=== PATIENT | female | born 1940 | race Caucasian/White ===

== ENCOUNTER 2025-01-13 04:01 | Emergency (ER) | payer MEDICARE, OTHER, SELFPAY ==
[2025-01-13 04:04] VITALS: BP 188/84
[2025-01-13 04:23] VITALS: BP 151/130
[2025-01-13 04:24] VITALS: BP 164/57
[2025-01-13] MEDS: BENADRYL 25 MG IV (04:46)
[2025-01-13] MEDS: DECADRON 10 MG IV (04:47)
[2025-01-13] MEDS: PEPCID 20 MG IV (04:47)
[2025-01-13 04:52] LABS: Hematocrit 35.8 % (37.0-47.0); Hemoglobin 12.2 g/dL (12.0-16.0); Mean Corp Hgb Conc. 34.1 g/dL (33.0-37.0); Mean Corpuscular Volume 88.0 fL (81.0-99.0); Nucleated Red Blood Cells % 0 %; Platelet Count 276 10^3/uL (130-400); Red Cell Dist. Width 12.4 % (11.5-14.5)
[2025-01-13 04:59] LABS: INR 1.02; PT 13.7 Sec (11.4-14.6)
[2025-01-13 05:00] VITALS: BP 156/67
[2025-01-13 05:00] LABS: APTT 24.9 Sec (23.4-35.0)
[2025-01-13 05:03] LABS: ALT (SGPT) 16 U/L (0-35); AST (SGOT) 23 U/L (14-36); Albumin 4.6 g/dl (3.5-5.0); Alkaline Phosphatase 84 U/L (38-126); Blood Urea Nitrogen 41 mg/dl (7-17); Calcium 10.1 mg/dl (8.4-10.2); Carbon Dioxide 21 mmol/L (22-30); Chloride 108 mmol/L (98-107); Glucose 111 mg/dl (70-99); Potassium 4.7 mmol/L (3.5-5.1); Sodium 139 mmol/L (135-145); Total Protein 7.0 g/dl (6.3-8.2); eGFR 41.06
[2025-01-13 05:14] LABS: Troponin I < 0.012 ng/ml
--- NOTE | 2025-01-13 05:41 | ED.GENMED ---
Addendum entered and electronically signed by Elana Arellano PA-C 01/14/25 08:20:
Received a phone call from the patient regarding her steroid dose. She has been on long-term steroids for years for rheumatology problems, including rheumatoid arthritis and temporal arteritis. She has been down trended to 1 mg a day for quite a
while. Patient was seen here for lip swelling and was treated with 10 mg of IV Decadron and discharged with 4 days of 50 mg of prednisone. She just got the prescription, she did not take anything yet today after being seen on the yesterday.
She is wondering if she can do a smaller dose of steroids. I told her to do 50 mg today followed by 25 mg a day x 2, 10 mg once on day 4, 5 mg on day 5 and then back down to 1 mg a day. She was comfortable with this plan. Patient symptoms have
fully resolved
Original Note:
History of Present Illness
General
Chief Complaint: Allergic Reaction
Source: patient
Time Seen by Provider: 01/13/25 04:14
Nursing documentation reviewed up to this point in time: agreed with
History of Present Illness
History of Present Illness:
84-year-old female who presents with facial swelling after going out to dinner tonight. She did not eat or drink anything new. Denies new detergents. She states that she ate salmon, said that she eats 3 times a week. Denies difficulty swallowing
or breathing. Patient has no known food allergies.
Past History
Past History
ED Past Medical History: HTN, Hypercholesterolemia and Other (Migraines, temporal arteritis)
ED Past Surgical History: Orthopedic and Tonsilectomy
Social History
Tobacco: Non-smoker
Alcohol: None
Drug: None
Personal:
Living: with family
Employment: Retired
Family History
Family History: Other (Noncontributory)
Phy Exam
General Physical Exam
General Presentation: well appearing and no apparent distress
General Skin: warm and dry
General Habitus: normal
General Mental: alert
General Hydration: appears well hydrated
ENT Exam
ENT Exam: EOMI, pharynx normal, neck supple and normocephalic
Eye Exam
Eye Exam: PERRL, cornea clear and conjunctiva normal
Cardiovascular Exam
Cardiovascular Exam: regular rate/rhythm, no edema, no murmur and normal peripheral pulses
Pulmonary Exam
Pulmonary Exam: lungs clear, no respiratory distress, no rales, no crackles, no rhonchi, no stridor, no wheezing and no cough
Gastrointestinal Exam
Gastrointestinal Exam: normal bowel sounds, non tender, soft, no organomegaly, no pulsatile mass and non distended
Neurological Exam
Neurological Exam: alert, oriented x3, no motor deficits and speech normal
Musculoskeletal Exam
Musculoskeletal Exam: full ROM and no edema
Skin Exam
Skin Exam: normal color, warm/dry, no rash and no petechia
Psychiatric Exam
Psychiatric Exam: normal mood/affect
Course
Orders/Labs/Results
Orders:
Orders
01/13/25 04:25
Complete Blood Count/With Diff Urgent
Comprehensive Metabolic Panel Urgent
PTT Urgent
Prothrombin Time Urgent
Troponin I Urgent
01/13/25 04:42
Dexamethasone Sod Phosphate [Decadron] 10 mg IV NOW STA
Diphenhydramine [Benadryl] 25 mg IV NOW STA
Famotidine [Pepcid] 20 mg IV NOW STA
01/13/25 04:59
EKG [Electrocardiogram (*1)] Urgent
Reason for Study: Chest Pain
EKG- Treatment ONCE
01/13/25 05:15
EKG- Treatment ONCE
01/13/25 05:37
0.9% Sodium Chloride 1000 ml [Nss] 1,000 ml IV BOLUS
Abnormal Lab Results
01/13/25
04:25
RBC 4.07 L 10^6/uL
(4.20-5.40)
Hct 35.8 L %
(37.0-47.0)
Absolute Neuts (auto) 7.1 H 10^3/uL
(1.4-6.5)
Absolute Lymphs (auto) 1.0 L 10^3/uL
(1.2-3.4)
Absolute Monos (auto) 0.8 H 10^3/uL
(0.1-0.6)
Neutrophils % 76.9 H %
(42.2-75.2)
Lymphocytes % 10.8 L %
(20.5-51.1)
Chloride 108 H mmol/L
(98-107)
Carbon Dioxide 21 L mmol/L
(22-30)
BUN 41 H mg/dl
(7-17)
Creatinine 1.3 H mg/dL
(0.6-1.0)
Glucose 111 H mg/dl
(70-99)
01/13/25 04:25
01/13/25 04:25
Vital Signs
Initial and Last Documented VS:
Initial Vital Signs
Temp Pulse Resp BP Pulse Ox
98.1 F 66 26 188/84 98
01/13/25 04:04 01/13/25 04:04 01/13/25 04:04 01/13/25 04:04 01/13/25 04:04
Last Documented Vital Signs
Temp Pulse Resp BP Pulse Ox
98.1 F 58 17 156/67 97
01/13/25 04:04 01/13/25 05:30 01/13/25 05:30 01/13/25 05:00 01/13/25 05:42
*Pulse Oximetry
SaO2: 97
Oxygen Mode of Delivery: Room air
Patient hypoxic: no
*Critical Care Note
Total Time (30-74mins, 75-104mins- exclusive of procedures): Not Applicable
Update Note
Update Note:
Patient with acute allergic reaction without anaphylaxis. Will be discharged home with EpiPen. We did discuss how to use it.
ED Attending Note
-
Portions of this chart may have been created with voice recognition software.� Occasional wrong word or��sound alike� substitutions may have occurred due to the inherent limitations of voice recognition software.
Discharge Plan
Departure
Patient Disposition: Home (Routine Discharge)
Date of Disposition: 01/13/25
Time of Disposition: 06:01
Patient with high blood pressure during this ER visit?: Yes
Condition: Good
Discharge Problem:
Allergic reaction
Instructions: Allergic reaction - ED (DC), BLOOD PRESSURE
Prescriptions:
New
diphenhydramine HCl [Benadryl] 25 mg capsule
25 mg PO TID PRN (Reason: allergy symptoms) Qty: 14 0RF
prednisone 50 mg Tablet
50 mg PO DAILY Qty: 4 0RF
epinephrine [EpiPen] 0.3 mg/0.3 mL Auto-Injector
0.3 mg IM .STAT PRN (Reason: anaphylaxis) Qty: 1 0RF
No Action
nifedipine 30 MG tablet extended release 24hr
30 mg PO BID
atorvastatin 10 MG tablet
20 mg PO QPM
aspirin [Aspir-Low] 81 MG tablet,delayed release (DR/EC)
81 mg PO DAILY
propranolol 20 MG tablet
20 mg PO BID
lisinopril 40 MG tablet
40 mg PO DAILY
diphenhydramine HCl [Sleep Aid (diphenhydramine)] 25 MG capsule
25 mg PO HS
esomeprazole magnesium 40 MG capsule,delayed release(DR/EC)
40 mg PO DAILY
cholecalciferol (vitamin D3) [Vitamin D3] 1,000 UNIT capsule
1,000 unit PO DAILY
meclizine 25 MG tablet
25 mg PO Q8HPRN PRN (Reason: Dizziness) Qty: 18 0RF
prednisone 1 mg Tablet
1 mg PO DAILY
hydroxychloroquine 100 mg Tablet
100 mg PO DAILY
Patient Comments:
WITH FOOD
Referrals:
Srinivas Russell DO [Active, Nephrology] - Next open appointment
Rene Calderón MD [Family Provider, Internal Medicine]
Activity Restrictions/Additional Instructions:
Your prescriptions were sent electronically to the pharmacy that you specified.
Thank You for choosing [facility].
It was a pleasure meeting you and taking part in your care. We hope for your continued healing and wellness.
Please read discharge instructions in their entirety. However, they are for general education and may not describe your exact diagnosis at discharge. Information on your ER visit and medical conditions were discussed with you along with appropriate
follow up information...
If indicated, please take your medications as instructed and indicated on discharge paperwork.
Please schedule a follow up appointment as directed. Call to schedule an appointment
Please return to the emergency department with ANY change in, persisting, or worsening of symptoms. If any of your symptoms do not improve, or persist, or become more severe within 6-12 hours, please return to the emergency department for further
care.
Please return to the emergency department if you develop a headache, neck pain/stiffness, fever greater than 100.4F, chest pain, shortness of breath, persistent nausea, vomiting, slurred speech, difficulty walking, numbness/tingling, weakness, signs
of infection or any other symptoms that are worrisome to you.
If you have any questions or concerns please do not hesitate to call the Hospital at or E-mail me directly at [email or web address]
Interventions
Interventions:
*Risk Screen - Suicide Last Done: 01/13/25 04:04
*General Assessment Last Done: 01/13/25 04:35
*Neglect/Abuse Screening Last Done: 01/13/25 04:04
*ED- Fall Risk Assessment Last Done: 01/13/25 04:35
*ED COVID-19 Vaccine History Last Done: 01/13/25 04:35
*Nursing Disposition Last Done: 01/13/25 06:55
EK-Csgvcl-Qfsislnece Assessment Last Done: 01/13/25 04:35
ED- Cardiac Assessment Last Done: 01/13/25 04:35
ED- Pulmonary Assessment Last Done: 01/13/25 04:35
ED-Skin Assessment Last Done: 01/13/25 04:35
Discharge Date and Time
Discharge Date/Time: 01/13/25 06:55
Print Language: GEORGIAN
[2025-01-13] MEDS: NSS 1000 IV (05:59)
== END 2025-01-13 06:55 | disposition home or self-care (01) ==
LOC: EMR 04:01
PROVIDERS: EMERGENCY PHYSICIAN Student in an Organized Health Care Education/Training Program; FAMILY PHYSICIAN Internal Medicine
DX: T78.40XA Allergy, unspecified, initial encounter (principal); Y92.9 Unspecified place or not applicable; I10 Essential (primary) hypertension; E78.00 Pure hypercholesterolemia, unspecified
CPT/HCPCS: 99283; 96374; 96375; 96361; 80053; 84484; 85025; 85610; 85730; 93005

== ENCOUNTER 2025-03-06 22:29 | Observation (INO) | payer MEDICARE, OTHER, SELFPAY ==
[2025-03-06 16:01] VITALS: BP 152/64
[2025-03-06 16:29] LABS: Hematocrit 41.3 % (37.0-47.0); Hemoglobin 13.6 g/dL (12.0-16.0); Mean Corp Hgb Conc. 32.9 g/dL (33.0-37.0); Mean Corpuscular Volume 92.2 fL (81.0-99.0); Nucleated Red Blood Cells % 0 %; Platelet Count 385 10^3/uL (130-400); Red Cell Dist. Width 12.9 % (11.5-14.5)
[2025-03-06 16:40] LABS: ALT (SGPT) 20 U/L (0-35); AST (SGOT) 30 U/L (14-36); Albumin 5.1 g/dl (3.5-5.0); Alkaline Phosphatase 66 U/L (38-126); Blood Urea Nitrogen 28 mg/dl (7-17); Calcium 11.1 mg/dl (8.4-10.2); Carbon Dioxide 29 mmol/L (22-30); Chloride 103 mmol/L (98-107); Glucose 113 mg/dl (70-99); Lipase 113 U/L (23-300); Potassium 4.7 mmol/L (3.5-5.1); Sodium 139 mmol/L (135-145); Total Protein 7.9 g/dl (6.3-8.2); eGFR 56.25
--- NOTE | 2025-03-06 18:53 | ED.GENMED ---
History of Present Illness
<Elana Arellano PA-C - Last Filed: 03/09/25 08:59>
General
Chief Complaint: Abdominal Symptoms
Time Seen by Provider: 03/06/25 18:12
History of Present Illness
History of Present Illness:
see MDM
Past History
<Elana Arellano PA-C - Last Filed: 03/09/25 08:59>
Past History
ED Past Medical History: HTN, Hypercholesterolemia and Other (Migraines, temporal arteritis)
ED Past Surgical History: Orthopedic and Tonsilectomy
Social History
Tobacco: Non-smoker
Alcohol: None
Drug: None
Personal:
Living: with family
Employment: Retired
Family History
Family History: Other (Noncontributory)
Phy Exam
<Elana Arellano PA-C - Last Filed: 03/09/25 08:59>
Physical Exam
Physical Exam:
seeMDM
Course
<Elana Arellano PA-C - Last Filed: 03/09/25 08:59>
Orders/Labs/Results
Orders:
Orders
03/06/25 16:09
Complete Blood Count/With Diff Urgent
Comprehensive Metabolic Panel Urgent
Lipase Urgent
03/06/25 18:48
CT Abd/Pel (IV only)-DH only Urgent
Comment:
Reason For Exam: vomiting, fever, epidural yesterday
Acetaminophen 1000MG/100Ml [Ofirmev] 1,000 mg in 100 ml IV ONCE
Acetaminophen IV Indication:: No SD & No Enteral Access
Ondansetron Injectable [Zofran] 4 mg IV NOW STA
03/06/25 19:05
COVID-19 Antigen Urgent
Source: Nasal Swab
Urinalysis Reflex To Culture Urgent
Date Specimen was Collected: 03/06/25
Time Specimen was Collected: 18:55
Urine Microscopic Reflex Cult Urgent
Influenza A+B Rapid Molecular Urgent
FACUNDO Source: Nasal Swab
Specimen Description:
Urine Culture Urgent
FACUNDO Source: U
Specimen Description:
Date Specimen was Collected: 03/06/25
Time Specimen was Collected: 18:55
03/06/25 19:25
0.9% Sodium Chloride 1000 ml [Nss] 1,000 ml IV BOLUS
03/06/25 21:17
Lactic Acid Urgent
Blood Culture Q30M
FACUNDO Source: Blood/Venous
Specimen Description:
Blood Culture Q30M
FACUNDO Source: Blood/Venous
Specimen Description:
03/06/25 21:21
0.9% Sodium Chloride 1000 ml [Nss] 1,000 ml IV BOLUS
03/06/25 22:04
CT Head W/o Iv Contrast Stat
Comment:
Reason For Exam: headache
03/06/25 22:22
Admit/Transfer Patient As Directed
Co-Sign Provider:
Level of Care: Observation services
Assign to:: Medical/Surgical
Physician / Group: kailey nguyen
Diagnosis: n/v
PRN Pain Medication Management As Directed
May give lesser potent ordered pain med per pt: Yes
preference::
Protocol:: Medication orders for pain may be administered in a
manner that supports deferring to patient preference
when the pt is:
- Requesting an ordered lesser potent pain medication.
Least to most potent pain medications are defined
as: acetaminophen < NSAID < tramadol < opioids
(morphine, oxycodone, hydromorphone).
- Requesting a lesser dose of the same medication IF
ORDERED.
- Requesting a less intrusive route of administration
if both routes are prescribed by the provider (PO <
IV).
10/11/25 22:23
Code Status As Directed
Resuscitation Status: Full Code
03/06/25 22:25
EKG [Electrocardiogram (*1)] Stat
Reason for Study: QTc Monitoring
03/07/25 00:07
0.9% Sodium Chloride 1000 ml [Nss] 1,000 ml IV 80 mls/hr
Acetaminophen [Tylenol] 650 mg PO Q4HPRN PRN
Bisacodyl [Dulcolax] 10 mg RECTAL [id number] PRN
Docusate W/Senna [Senokot-S] 1 tablet PO BIDPRN PRN
Ondansetron Injectable [Zofran] 4 mg IV Q6HPRN PRN
Polyethylene Glycol Powder [Miralax] 17 grams PO DAILYPRN PRN
03/07/25 00:07
Activity As Directed
Activity Level: As Tolerated
Pneumatic Compression Sleeves As Directed
Type: Knee high
Vital Signs As Directed
Frequency: Per unit guidelines
DX Deep Vein Thrombosis Video Routine
03/07/25 Breakfast
Regular
At Your Request: Full Participation
Does patient need a safe tray?: No
03/07/25 06:38
Basic Metabolic Panel IN AM
Complete Blood Count/No Diff IN AM
03/07/25 08:00
Aspirin Low Dose EC [Aspir Low (Enteric Coated)] 81 mg PO DAILY
Hydroxychloroquine [Plaquenil] 200 mg PO DAILY
Lisinopril [Zestril] 40 mg PO DAILY
NIFEdipine EXTENDED RELEASE [Procardia Xl (Extended Release)] 30 mg PO BID
Pantoprazole [Protonix] 40 mg PO DAILY
Prednisone [Deltasone] 1 mg PO DAILY
Propranolol [Inderal] 20 mg PO BID
03/07/25 18:00
Atorvastatin [Lipitor] 40 mg PO QPM
Abnormal Lab Results
03/06/25 03/06/25
16:09 19:05
WBC 11.8 H 10^3/uL
(4.8-10.8)
MCHC 32.9 L g/dL
(33.0-37.0)
Absolute Neuts (auto) 9.7 H 10^3/uL
(1.4-6.5)
Absolute Lymphs (auto) 1.1 L 10^3/uL
(1.2-3.4)
Absolute Monos (auto) 1.0 H 10^3/uL
(0.1-0.6)
Neutrophils % 81.9 H %
(42.2-75.2)
Lymphocytes % 9.0 L %
(20.5-51.1)
BUN 28 H mg/dl
(7-17)
Glucose 113 H mg/dl
(70-99)
Calcium 11.1 H mg/dl
(8.4-10.2)
Albumin 5.1 H g/dl
(3.5-5.0)
Ur Occult Blood Reflex 2+ A
(Negative)
Leukocyte Esterase Rfl 1+ A
(Negative)
Urine Bacteria (Reflex) Few A
(Negative)
Urine Albumin (Reflex) 1+ A
(Neg - Trace)
03/06/25 16:09
03/06/25 16:09
Vital Signs
Temp: 37.5 C
Initial and Last Documented VS:
Initial Vital Signs
Temp Pulse Resp BP Pulse Ox
37.1 C 67 18 152/64 97
03/06/25 16:01 03/06/25 16:01 03/06/25 16:01 03/06/25 16:01 03/06/25 16:01
Last Documented Vital Signs
Temp Pulse Resp BP Pulse Ox
36.4 C 61 18 132/61 97
03/07/25 14:30 03/07/25 14:30 03/07/25 14:30 03/07/25 14:30 03/07/25 14:30
<Dariela Gutierrez MD - Last Filed: 03/06/25 22:09>
Orders/Labs/Results
Orders:
Orders
03/06/25 16:09
Complete Blood Count/With Diff Urgent
Comprehensive Metabolic Panel Urgent
Lipase Urgent
03/06/25 18:48
CT Abd/Pel (IV only)-DH only Urgent
Comment:
Reason For Exam: vomiting, fever, epidural yesterday
Acetaminophen 1000MG/100Ml [Ofirmev] 1,000 mg in 100 ml IV ONCE
Acetaminophen IV Indication:: No SD & No Enteral Access
Ondansetron Injectable [Zofran] 4 mg IV NOW STA
03/06/25 19:05
COVID-19 Antigen Urgent
Source: Nasal Swab
Urinalysis Reflex To Culture Urgent
Date Specimen was Collected: 03/06/25
Time Specimen was Collected: 18:55
Urine Microscopic Reflex Cult Urgent
Influenza A+B Rapid Molecular Urgent
FACUNDO Source: Nasal Swab
Specimen Description:
Urine Culture Urgent
FACUNDO Source: U
Specimen Description:
Date Specimen was Collected: 03/06/25
Time Specimen was Collected: 18:55
03/06/25 19:25
0.9% Sodium Chloride 1000 ml [Nss] 1,000 ml IV BOLUS
03/06/25 21:17
Lactic Acid Urgent
Blood Culture Q30M
FACUNDO Source: Blood/Venous
Specimen Description:
Blood Culture Q30M
FACUNDO Source: Blood/Venous
Specimen Description:
03/06/25 21:21
0.9% Sodium Chloride 1000 ml [Nss] 1,000 ml IV BOLUS
03/06/25 22:04
CT Head W/o Iv Contrast Stat
Comment:
Reason For Exam: headache
03/06/25 22:22
Admit/Transfer Patient As Directed
Co-Sign Provider:
Level of Care: Observation services
Assign to:: Medical/Surgical
Physician / Group: kailey nguyen
Diagnosis: n/v
PRN Pain Medication Management As Directed
May give lesser potent ordered pain med per pt: Yes
preference::
Protocol:: Medication orders for pain may be administered in a
manner that supports deferring to patient preference
when the pt is:
- Requesting an ordered lesser potent pain medication.
Least to most potent pain medications are defined
as: acetaminophen < NSAID < tramadol < opioids
(morphine, oxycodone, hydromorphone).
- Requesting a lesser dose of the same medication IF
ORDERED.
- Requesting a less intrusive route of administration
if both routes are prescribed by the provider (PO <
IV).
03/06/25 22:23
Code Status As Directed
Resuscitation Status: Full Code
03/06/25 22:25
EKG [Electrocardiogram (*1)] Stat
Reason for Study: QTc Monitoring
03/07/25 00:07
0.9% Sodium Chloride 1000 ml [Nss] 1,000 ml IV 80 mls/hr
Acetaminophen [Tylenol] 650 mg PO Q4HPRN PRN
Bisacodyl [Dulcolax] 10 mg RECTAL [id number] PRN
Docusate W/Senna [Senokot-S] 1 tablet PO BIDPRN PRN
Ondansetron Injectable [Zofran] 4 mg IV Q6HPRN PRN
Polyethylene Glycol Powder [Miralax] 17 grams PO DAILYPRN PRN
03/07/25 00:07
Activity As Directed
Activity Level: As Tolerated
Pneumatic Compression Sleeves As Directed
Type: Knee high
Vital Signs As Directed
Frequency: Per unit guidelines
DX Deep Vein Thrombosis Video Routine
03/07/25 Breakfast
Regular
At Your Request: Full Participation
Does patient need a safe tray?: No
03/07/25 06:38
Basic Metabolic Panel IN AM
Complete Blood Count/No Diff IN AM
03/07/25 08:00
Aspirin Low Dose EC [Aspir Low (Enteric Coated)] 81 mg PO DAILY
Hydroxychloroquine [Plaquenil] 200 mg PO DAILY
Lisinopril [Zestril] 40 mg PO DAILY
NIFEdipine EXTENDED RELEASE [Procardia Xl (Extended Release)] 30 mg PO BID
Pantoprazole [Protonix] 40 mg PO DAILY
Prednisone [Deltasone] 1 mg PO DAILY
Propranolol [Inderal] 20 mg PO BID
03/07/25 18:00
Atorvastatin [Lipitor] 40 mg PO QPM
Abnormal Lab Results
03/06/25 03/06/25
16:09 19:05
WBC 11.8 H 10^3/uL
(4.8-10.8)
MCHC 32.9 L g/dL
(33.0-37.0)
Absolute Neuts (auto) 9.7 H 10^3/uL
(1.4-6.5)
Absolute Lymphs (auto) 1.1 L 10^3/uL
(1.2-3.4)
Absolute Monos (auto) 1.0 H 10^3/uL
(0.1-0.6)
Neutrophils % 81.9 H %
(42.2-75.2)
Lymphocytes % 9.0 L %
(20.5-51.1)
BUN 28 H mg/dl
(7-17)
Glucose 113 H mg/dl
(70-99)
Calcium 11.1 H mg/dl
(8.4-10.2)
Albumin 5.1 H g/dl
(3.5-5.0)
Ur Occult Blood Reflex 2+ A
(Negative)
Leukocyte Esterase Rfl 1+ A
(Negative)
Urine Bacteria (Reflex) Few A
(Negative)
Urine Albumin (Reflex) 1+ A
(Neg - Trace)
03/06/25 16:09
03/06/25 16:09
Vital Signs
Initial and Last Documented VS:
Initial Vital Signs
Temp Pulse Resp BP Pulse Ox
37.1 C 67 18 152/64 97
03/06/25 16:01 03/06/25 16:01 03/06/25 16:01 03/06/25 16:01 03/06/25 16:01
Last Documented Vital Signs
Temp Pulse Resp BP Pulse Ox
36.4 C 61 18 132/61 97
03/07/25 14:30 03/07/25 14:30 03/07/25 14:30 03/07/25 14:30 03/07/25 14:30
<Elana Arellano PA-C - Last Filed: 03/09/25 08:59>
MDM/Problems Addressed
Differential Diagnosis Includes:
see MDM
MDM/Problems Addressed:
Note:
CHIEF COMPLAINT(S)
Nausea, vomiting, headache, dehydration.
HISTORY OF PRESENT ILLNESS
The patient is an 84-year-old female who presented with nausea and vomiting following an epidural procedure performed yesterday morning for back and leg pain. She reports having two episodes of vomiting with liquid contents approximately one and a
half hours after returning home from the procedure. Despite contacting the pain management doctor who administered the epidural, who was not affiliated with the hospital, the symptoms were attributed to a potential gastrointestinal issue rather than
the epidural itself.
The patient noted an inability to sleep well, citing nausea and mild headache, denied neck stiffness. She reported experiencing feeling flushed but wasn't aware of fever
She also noted very mild bowel movements but no diarrhea or abdominal pain. Her last bowel movement was described as very mild.
The patient denies fever and has not recorded any elevated temperature, although her observed facial redness. She reported a mild headache today, with no notable photophobia unless keeping eyes closed implies it. There were no accompanying
symptoms like diarrhea or significant abdominal discomfort, except for a feeling of fullness.
PAST MEDICAL AND SURGICAL HISTORY
The patient underwent two epidural injections for back and leg pain. She had a past medical history of stenosis intervention by her doctor, adjusting the medication dosages.
SOCIAL DETERMINANTS AFFECTING HEALTH
There was an indirect mention of potential stress related to caregiving responsibilities as noted when the patient mentioned being with her and daughter.
PHYSICAL EXAM
- Nursing notes reviewed and vital signs reviewed.
GENERAL: Alert , in no apparent distress
EYE: pupils equal and reactive
NECK: Supple
ENT: o/p clr, mmm.
CARDIAC: Regular rate and rhythm .
LUNGS: Clear breath sounds bilaterally, no acute respiratory distress, no wheezes/rales/rhonchi
ABDOMEN: Soft, mild epigastric tendernes, no r/g, no cvat, normal bowel sounds
NEUROLOGICAL: Alert and oriented, no focal neuro deficits
SKIN: Warm and dry, skin intact.
MUSCULOSKELETAL: No edema, well perfused. neg mona's sign
PSYCH: Normal and appropriate interaction.
PROBLEM LIST
Acute:
- Nausea and vomiting
- Dehydration
- Headache
PLAN
- Administer intravenous fluids to address dehydration.
- Provide antiemetic medication to relieve nausea.
- Consider medications for headache relief.
- Obtain laboratory tests, including checking liver markers and consider imaging studies such as ultrasound or CT scan to assess for potential gallbladder issues or other intra-abdominal pathology.
- Evaluate for viral illnesses such as influenza and COVID-19.
DIFFERENTIAL DIAGNOSIS
The Differential Diagnosis includes, in no particular order and is not limited to:
1. Viral gastroenteritis
2. Dehydration secondary to vomiting
3. Medication side effects
4. Gallbladder disease
5. Gastroesophageal reflux disease
6. Epidural-related complications
7. Urinary tract infection
8. Peptic ulcer disease
9. Acute gastrointestinal bleed
10. Viral syndrome
CARE-UPDATE
03/06/25 - 20:06
Patient is feeling slightly better, with reduced redness observed. Blood pressure has decreased to 146/56 from a previously higher level. Urinalysis indicates the presence of bacteria, white cells, and leukocytes, suggesting a potential urinary
tract infection (UTI) BUT THIS IS CONTAMIATED; WISH TO GET ANOTHER SAMPLE
. CT SHOWS SMALL CYST IN PANCREAS
dad had pancreatic ca
doubt this is clinically relevant to todays visit
pt was informed she needs outpatient MRCP
admit pending blood cultures
concern for post procedure fever
<Elana Arellano PA-C - Last Filed: 03/09/25 08:59>
*Pulse Oximetry
SaO2: 97
Oxygen Mode of Delivery: Room air
Patient hypoxic: no (97)
*Critical Care Note
Total Time (30-74mins, 75-104mins- exclusive of procedures): Not Applicable
ED Attending Note
<Elana Arellano PA-C - Last Filed: 03/09/25 08:59>
-
Portions of this chart may have been created with voice recognition software.� Occasional wrong word or��sound alike� substitutions may have occurred due to the inherent limitations of voice recognition software.
<Dariela Gutierrez MD - Last Filed: 03/06/25 22:09>
ED Attending Note
Patient seen and examined by attending physician: Yes
I performed the substantive portion of visit, reviewed & personally made and approve the management plan that is documented in note by myself or FORD.: Yes
ED Attending Note:
Patient appears flushed but nontoxic. There is no meningismus. Heart sounds regular without murmur. Lungs are clear.
Discharge Plan
Departure
Patient Disposition: Admit
Date of Disposition: 03/06/25
Time of Disposition: 21:31
Admit to: Med/Surg
Presentation/result/management discussed w/ accepting MD/DO: Hospitalist
Condition: Fair
Discharge Problem:
Post-procedural fever, Pancreatic mass, Vomiting
Interventions
Interventions:
*Risk Screen - Suicide Last Done: 03/07/25 00:09
*General Assessment Last Done: 03/06/25 16:04
*Neglect/Abuse Screening Last Done: 03/07/25 00:01
*ED- Fall Risk Assessment Last Done: 03/07/25 00:01
*ED COVID-19 Vaccine History Last Done: 03/07/25 00:09
*ED Influenza Vaccine History Last Done: 03/06/25 16:04
*Nursing Disposition Last Done: 03/07/25 00:01
WK-Gpoven-Mxrqmvibwh Assessment Last Done: 03/06/25 19:08
Discharge Date and Time
Discharge Date/Time: 03/07/25 00:01
[2025-03-06 19:06] VITALS: BMI 23.3
[2025-03-06 19:15] VITALS: BP 145/51
[2025-03-06] MEDS: ZOFRAN 4 MG IV (19:15)
[2025-03-06] MEDS: OFIRMEV 100 IV (19:15)
--- NOTE | 2025-03-06 19:24 | EDRN ---
Report received, introduced myself to patient and , updated her on labs and plan for CT, will continue to monitor
[2025-03-06 19:25] LABS: Urine Character Clear (Clear)
[2025-03-06] MEDS: NSS 1000 IV ×2 (19:27→21:22)
--- NOTE | 2025-03-06 19:30 | EDRN ---
Report received, introduced myself to patient and , updated her on labs and plan for CT, will continue to monitor
[2025-03-06 19:44] LABS: COVID-19 Antigen Negative (Negative)
[2025-03-06 19:53] LABS: Urine Red Blood Cell 0-2 /HPF (0-2); Urine Squamous Cell >30 /LPF (Few)
[2025-03-06 20:00] VITALS: BP 146/56
[2025-03-06 21:21] VITALS: BP 153/59
--- NOTE | 2025-03-06 21:51 | EDRN ---
Patient updated on her CT and aware that she will be admitted to the hospital
--- NOTE | 2025-03-06 21:58 | HPS.HSE ---
Family Physician
-
Family Physician: Rene Calderón
Chief Complaint
-
headache
N?V
History of Present Illness
84-year-old with past medical history of hypertension, hypercholesteremia, migraines, temporal arteritis presented to nausea vomiting following an epidural procedure performed yesterday for back and leg pain.She reports having two episodes of
vomiting with liquid contents approximately one and a half hours after returning home from the procedure. Despite contacting the pain management doctor who administered the epidural, who was not affiliated with the hospital, the symptoms were
attributed to a potential gastrointestinal issue rather than the epidural itself. she vomited again this morning after breakfast. she complained of right sided ANDERSON since the injection. denied dizzy or syncope. denied fever, chills,chest pain,
sob.denied abdominal pain,diarrhea. denied dysuria or hematuria.
Patient received Tylenol, normal saline, Zofran in ER. Admitted for further management
Medical History
Past Medical History
Past Medical History: Reports Other
Additional Past Medical History:
Hypertension, hyperlipidemia, coronary artery disease, giant cell arteritis, basal cell carcinoma
Past Surgical History: Reports None
Social History
Tobacco: Non-smoker
Alcohol: None
Drug: None
Personal:
Living: With Family
Family History
Family History: Not pertinent
Allergies / Home Medications
Allergies reflects when Allergies were last updated in [address]
Home Medications with original date entered in [address]
Allergy/Medication List:
Allergies
Allergy/AdvReac Type Severity Reaction Status Date / Time
tramadol Allergy Vomiting Verified 03/06/25 16:05
hydromorphone (From Dilaudid) AdvReac Severe Nausea / Verified 03/06/25 16:05
Vomiting
doxycycline AdvReac Mild Unknown Verified 03/06/25 16:05
moxifloxacin (From Avelox) AdvReac Mild Unknown Verified 03/06/25 16:05
Home Medications
aspirin 81 mg tablet,delayed release (Aspir-Low) 81 mg PO DAILY Blood clot prevention/tx 12/26/19
atorvastatin 10 mg tablet 40 mg PO QPM High cholesterol 12/26/19
diphenhydramine HCl 25 mg capsule (Sleep Aid (diphenhydramine)) 50 mg PO HS Sleep 12/26/19
lisinopril 40 mg tablet 40 mg PO DAILY Blood pressure 12/26/19
nifedipine 30 mg tablet,extended release 24 hr 30 mg PO BID Blood pressure 12/26/19
propranolol 20 mg tablet 20 mg PO BID Blood pressure 12/26/19
cholecalciferol (vitamin D3) 25 mcg (1,000 unit) capsule (Vitamin D3) 1,000 unit PO DAILY Supplement 01/18/21
esomeprazole magnesium 40 mg capsule,delayed release 20 mg PO DAILY Gastrointestinal issue 01/18/21
epinephrine 0.3 mg/0.3 mL injection, auto-injector (EpiPen) 0.3 mg (0.3 mL) IM .STAT PRN anaphylaxis #1 ea 01/13/25
hydroxychloroquine 100 mg tablet 200 mg PO DAILY 01/13/25
prednisone 1 mg tablet 1 mg PO DAILY 01/13/25
wsiqryvpbo-uftgwvz-indgbzga 50 mg-325 mg-40 mg tablet 1 tab PO PRN PRN headache 03/06/25
guar gum 1 tbsp PO DAILY 03/06/25
ondansetron HCl 4 mg tablet 4 mg PO PRN PRN nausea 03/06/25
Review of Systems
-
Constitutional: Reports No Symptoms
EENT: Reports No Symptoms
Respiratory: Reports No Symptoms
Cardiac: Reports No Symptoms
Abdomen/GI: Reports Nausea and Vomiting
: Reports No Symptoms
Musculoskeletal: Reports No Symptoms
Skin: Reports No Symptoms
Neurological: Reports Headache
Endocrine: Reports No Symptoms
Hematologic/Lymphatic: Reports No Symptoms
Psych: Reports No Symptoms
Physical Exam
Vital Signs
Vital Signs
Temp Pulse Resp BP Pulse Ox
99.5 F 67 18 153/59 97
03/06/25 18:54 03/06/25 16:01 03/06/25 16:01 03/06/25 21:21 03/06/25 21:45
Physical Exam
General: Well Developed, Well Nourished and No Apparent Distress
HEENT: NormoCephalic, Moist mucous membranes and Atraumatic
Respiratory: Clear
Cardiac: S1/S2 and Regular Rhythm; No Murmur or Rub
GI: Soft, Non Tender, Non Distended and Normal Bowel Sounds; No Organomegaly
Rectal: Deferred by Provider
Musculoskeletal: No Clubbing, No Cyanosis and No Edema
Skin: No Rash
Neuro: AO x 3 and Nonfocal/grossly intact
Psych: Calm
Laboratory Results
-
03/06/25 16:09
03/06/25 16:09
Laboratory Results
Lactic Acid 1.0 mmol/L (0.7-2.0) 03/06/25 21:17
Total Bilirubin 0.7 mg/dl (0.2-1.3) 03/06/25 16:09
AST 30 U/L (14-36) 03/06/25 16:09
ALT 20 U/L (0-35) 03/06/25 16:09
Alkaline Phosphatase 66 U/L (38-126) 03/06/25 16:09
Lipase 113 U/L (23-300) 03/06/25 16:09
Data Reviewed
-
Lab Data: Labs Reviewed by me
Impression/Plan
-
# Vomiting, fever, headache unclear cause likely migraine
-obtain CT head
- WBC 11.8
- COVID flu negative
- Blood culture sent from ER
- obtain UA
-Zofran prn for n/v
-Tylenol prn for ANDERSON
#recent lumbar epidural injection
-pain much better
#pancreas cyst
- CT abdomen pelvis with impression of No significant acute abnormality identified in the abdomen or pelvis, as described above.
2. Cystic lesion in the pancreatic head measuring up to 1.3 cm may reflect a pseudocyst or side branch intraductal papillary mucinous neoplasm. Recommend outpatient workup with dedicated MRI/MRCP abdomen without and with gadolinium contrast.
#Hypertension
- Lisinopril, nifedipine, propranolol continued
#GERD
- Stable. Continue daily PPI.
History of TA / GCA
- On prednisone
# Hyperlipidemia
- Aspirin, statin continued
DVT Prophylaxis: SCDs
Code Status: Full
[2025-03-06 22:00] VITALS: BP 143/64
--- NOTE | 2025-03-06 22:00 | W.PN.UPDATE ---
Update Note
Progress Note Update
This note serves as an addendum to the H&P by slate cutter operator Denise CAMACHO�
HPI
84F HX HTN, Migraines, temporal arteritis seen at ER:
- vomiting and unable to keep anything down since yesterday
- s/p Epidural on 03/06 x first time
- Report Rt sided ANDERSON
Relevant VS
Temp Pulse Resp BP Pulse Ox
99.5 F 67 18 153/59 97
03/06/25 18:54 03/06/25 16:01 03/06/25 16:01 03/06/25 21:21 03/06/25 21:45
PE
Gen: NAD
HEENT: nl sppech
Neck:supple
Lungs:Non labored breathing
Psych: Normal mood and affect
Relevant Data
01/13/25 03/06/25
04:25 16:09
WBC 9.2 11.8 H
Hgb 12.2 13.6
Plt Count 385
03/06/25 03/06/25
16:09 21:17
BUN 28 H
Creatinine 1.0
eGFR 56.25
Lactic Acid 1.0
Calcium 11.1 H
NO PRIOR hospitalist admission:
ASSESSMENT & PLAN
Intractable vomiting - improving
R sided ANDERSON - much beter
Leucocytosis - suspect leukemoid reaction
No clinical meningism
S/P 2 x ALESSANDRO at b/l [place] on [facility] at [facility]
DDX: Epidural leak , Migraine
- Supportive care : IVF, Anti emetics PRN
- HCT
- To consider Neuro consult if ANDERSON persist
Chronic condition:
Migraine - on [facility] C[facility] propranolol
HX Essential HTN - HIM CODER Lisinopril , Nifedipine
HLD - HIM CODER atorvastatin
DVT Px: SCD
Full code
OBS MS
--- NOTE | 2025-03-06 22:14 | EDRN ---
Dr. Delaney at bedside working on admission
[2025-03-06 23:45] VITALS: BP 154/98
[2025-03-06 23:45] LABS: Urine Character Clear (Clear)
[2025-03-07 00:21] VITALS: BMI 23.4
[2025-03-07] MEDS: NSS 1000 IV (00:38)
[2025-03-07] MEDS: PROCARDIA XL (EXTENDED RELEASE) 30 MG PO ×2 (00:52→08:11)
[2025-03-07] MEDS: LIPITOR 40 MG PO (00:52)
[2025-03-07] MEDS: INDERAL 20 MG PO ×2 (00:55→08:11)
[2025-03-07] MEDS: TYLENOL 650 MG PO (05:34)
[2025-03-07 07:00] VITALS: BP 127/56
[2025-03-07 07:02] LABS: Hematocrit 34.1 % (37.0-47.0); Hemoglobin 11.5 g/dL (12.0-16.0); Mean Corp Hgb Conc. 33.7 g/dL (33.0-37.0); Mean Corpuscular Volume 87.9 fL (81.0-99.0); Platelet Count 297 10^3/uL (130-400); Red Cell Dist. Width 13.0 % (11.5-14.5)
[2025-03-07 07:45] LABS: Blood Urea Nitrogen 20 mg/dl (7-17); Calcium 9.6 mg/dl (8.4-10.2); Carbon Dioxide 23 mmol/L (22-30); Chloride 110 mmol/L (98-107); Estimated Creatinine Clearance 35 ml/min; Glucose 92 mg/dl (70-99); Potassium 4.3 mmol/L (3.5-5.1); Sodium 139 mmol/L (135-145); eGFR > 60.00
[2025-03-07] MEDS: DELTASONE 1 MG PO (08:09)
[2025-03-07] MEDS: ASPIR LOW (ENTERIC COATED) 81 MG PO (08:10)
[2025-03-07] MEDS: PLAQUENIL 200 MG PO (08:10)
[2025-03-07] MEDS: PROTONIX 40 MG PO (08:10)
[2025-03-07] MEDS: ZESTRIL 20 MG PO (08:20)
--- NOTE | 2025-03-07 11:21 | CM ---
Addendum entered by Daniella Mercado 03/07/25 14:49:
Discharge to home today
Original Note:
Met with patient and at bedside; THOMAS notice completed; form signed @ [id number]
Pharmacy verified: [facility] @ [id number] [facility]
Patient lives w/ ; multilevel home; 1 step to enter; 13 steps between floors; railing on stairs; 1/2 bath on 1st floor
PLOF: independent with ambulation, stairs, and ADLs; no DME
NO SNF or Home Health utilization history
Spouse will provide transport home
Plan: Discharge to home when stable; no needs
--- NOTE | 2025-03-07 14:13 | W.PN.HOSP.TC ---
Today's Communication/Plan
-
Discharge planning today
Assessment / Plan
Assessment / Plan
Physical exam:
General: Well Developed, Well Nourished and No Apparent Distress
HEENT: Normocephalic, Atraumatic and Moist Mucous Membranes
Respiratory: Clear to Auscultation; Negative Wheezes, Rales or Rhonchi
Cardiac: Regular Rhythm and S1/S2
GI: Soft, Nontender and Nondistended
Musculoskeletal: No Clubbing, No Cyanosis and No Edema
Neuro: Awake, Alert and Oriented
Psych: Calm
A/P:
# Vomiting, fever, headache unclear cause likely migraine versus acute gastroenteritis; less likely related to epidural
-obtain CT head
- WBC 11.8
- COVID flu negative
- Blood culture sent from ER
- obtain UA
-Zofran prn for n/v
-Tylenol prn for ANDERSON
03/07:
Patient feels back to baseline and no longer symptomatic
Plan to discharge home today
#recent lumbar epidural injection
-pain much better
#pancreas cyst
- CT abdomen pelvis with impression of No significant acute abnormality identified in the abdomen or pelvis, as described above.
2. Cystic lesion in the pancreatic head measuring up to 1.3 cm may reflect a pseudocyst or side branch intraductal papillary mucinous neoplasm. Recommend outpatient workup with dedicated MRI/MRCP abdomen without and with gadolinium contrast.
03/07:
Discussed about findings of pancreatic cyst and although no concerning signs by radiology due to her family history we do recommend outpatient MRI for further evaluation she will discuss with her PCP as outpatient. Discussed also findings with
at bedside
#Hypertension
- Lisinopril, nifedipine, propranolol continued
#GERD
- Stable. Continue daily PPI.
History of TA / GCA
- On prednisone
# Hyperlipidemia
- Aspirin, statin continued
DVT Prophylaxis: SCDs
Code Status: Full
Anticipated Discharge: Today
Subjective/Interval History
-
Date of Service: March 07, 2025
Patient feels better, no nausea vomiting or headaches. Feels back to her baseline. Afebrile
Objective Data
-
Labs:
Laboratory Results
03/07/25
06:38
WBC 8.5
Hgb 11.5 L
Hct 34.1 L
Plt Count 297 D
Sodium 139
Potassium 4.3
Chloride 110 H
Carbon Dioxide 23
BUN 20 H
Creatinine 0.9
Glucose 92
Calcium 9.6 D
Vital Signs:
Vital Signs
Temp Pulse Resp BP Pulse Ox
97.9 F 62 18 127/56 98
03/07/25 07:00 03/07/25 07:00 03/07/25 07:00 03/07/25 07:00 03/07/25 07:00
I&O
03/06/25 03/07/25 03/08/25
06:59 06:59 06:59
Intake Total 560 / 560
Balance 560 / 560
--- NOTE | 2025-03-07 14:16 | W.DCSUMMARY ---
Discharge Summary
Discharge Data
Date of Admission: 03/06/25
Date of Discharge: 03/07/25
-
Pending Results: No
Hospital Course
Patient 84 years old female with history of hypertension, hyperlipidemia, migraines, temporal arteritis, chronic back pain, came into the hospital with nausea vomit and headaches. Patient just had an epidural procedure due to back pain and after
procedure she started to have nausea vomit and headache. Patient contacted her pain doctor who did not feel this was related to the procedure and probably attributed to a viral gastroenteritis. She came into the hospital and she received
supportive care with IV fluids and her symptoms resolved the following day. Patient was able to tolerate oral intake and also has been able to ambulate without any problems. She remained hemodynamically stable and afebrile. She had a CT scan of
the head unremarkable for acute intracranial abnormalities. She had a CT scan of the abdomen and pelvis unremarkable for acute intra-abdominal pathology but she does have a pancreatic cyst and as per radiology report looks benign but she does have
a strong family history of pancreatic cancer so recommended to follow-up with primary care physician for the possibility of MRI as outpatient for further delineation of such cyst. Otherwise, patient is hemodynamically stable and back to her
baseline so she is can be discharged in stable condition today.
Discharge Plan
-
Patient Disposition: Home (Routine Discharge)
Discharge Diagnosis/Procedures: Headache nausea and vomiting. Recent epidural. Probable gastroenteritis. Pancreatic cyst. Chronic back pain. History of migraines.
Diet: Low Cholesterol
Activity: As tolerated
Blood Work: Please PCP to order CBC, BMP within 1 week
Referrals:
Rene Calderón MD [Family Provider, Internal Medicine] - in less than 1 week
Additional Discharge Medication Instructions: Please follow-up pancreatic cyst with your primary care physician as outpatient.
Prescriptions:
Continued
nifedipine 30 MG tablet extended release 24hr
30 mg PO BID
atorvastatin 10 MG tablet
40 mg PO QPM
aspirin [Aspir-Low] 81 MG tablet,delayed release (DR/EC)
81 mg PO DAILY
propranolol 20 MG tablet
20 mg PO BID
lisinopril 40 MG tablet
20 mg PO DAILY
diphenhydramine HCl [Sleep Aid (diphenhydramine)] 25 MG capsule
50 mg PO HS
esomeprazole magnesium 40 MG capsule,delayed release(DR/EC)
20 mg PO DAILY
cholecalciferol (vitamin D3) [Vitamin D3] 1,000 UNIT capsule
1,000 unit PO DAILY
prednisone 1 mg Tablet
1 mg PO DAILY
hydroxychloroquine 100 mg Tablet
200 mg PO DAILY
Patient Comments:
WITH FOOD
epinephrine [EpiPen] 0.3 mg/0.3 mL Auto-Injector
0.3 mg IM .STAT PRN (Reason: anaphylaxis) Qty: 1 0RF
ondansetron HCl 4 mg Tablet
4 mg PO PRN PRN (Reason: nausea)
guar gum Packet
1 tbsp PO DAILY
ryeqlhlggg-vftyrfw-ayxvqqam 50-325-40 mg Tablet
1 tab PO PRN PRN (Reason: headache)
Discharge Orders:
Discharge Patient (As Directed); Ordered 03/07/25
Ordered By: Chele Leong
Discharge Date and Time
Print Language: DANISH
[2025-03-07 14:26] VITALS: PULSE 61; O2SAT 97
[2025-03-07 14:30] VITALS: BP 132/61
== END 2025-03-07 14:53 | disposition home or self-care (01) ==
LOC: 4 WEST ACU 22:29
PROVIDERS: Physician Assistant; Registered Nurse; ADMITTING PHYSICIAN Internal Medicine; ATTENDING PHYSICIAN Hospitalist; EMERGENCY PHYSICIAN Emergency Medicine; FAMILY PHYSICIAN Internal Medicine
DX: R11.2 Nausea with vomiting, unspecified (principal); R51.9 Headache, unspecified; R10.9 Unspecified abdominal pain; G89.29 Other chronic pain; E78.00 Pure hypercholesterolemia, unspecified; I10 Essential (primary) hypertension; D72.829 Elevated white blood cell count, unspecified; I25.10 Atherosclerotic heart disease of native coronary artery without angina pectoris; M31.6 Other giant cell arteritis; E86.0 Dehydration; R50.82 Postprocedural fever; K86.2 Cyst of pancreas; K21.9 Gastro-esophageal reflux disease without esophagitis; I49.1 Atrial premature depolarization; M54.9 Dorsalgia, unspecified; Z79.899 Other long term (current) drug therapy; Z79.52 Long term (current) use of systemic steroids; Z88.1 Allergy status to other antibiotic agents; Z88.5 Allergy status to narcotic agent; Z79.82 Long term (current) use of aspirin; Z80.0 Family history of malignant neoplasm of digestive organs; Z85.828 Personal history of other malignant neoplasm of skin; Z11.52 Encounter for screening for COVID-19
CPT/HCPCS: 70450; 74177; 80048; 80053; 81003; 81015; 83605; 83690; 85025; 85027; 87040; 87086; 87502; 87811; 93005; 96361; 96374; 96375; 97161; 99284; G0378; Q9967

== ENCOUNTER 2025-05-03 06:41 | Observation (INO) | payer MEDICARE, OTHER, SELFPAY ==
[2025-05-03] VITALS (23 sets, daily range): BP systolic 105–196; BP diastolic 48–120; BMI 24.5; BMI 23.6
[2025-05-03 02:32] LABS: Hematocrit 36.2 % (37.0-47.0); Hemoglobin 12.1 g/dL (12.0-16.0); Mean Corp Hgb Conc. 33.4 g/dL (33.0-37.0); Mean Corpuscular Volume 90.3 fL (81.0-99.0); Nucleated Red Blood Cells % 0 %; Platelet Count 314 10^3/uL (130-400); Red Cell Dist. Width 12.7 % (11.5-14.5)
--- NOTE | 2025-05-03 02:46 | ED.GENMED ---
History of Present Illness
<Isabel Brown PA-C - Last Filed: 05/03/25 07:59>
General
Chief Complaint: Chest Pain
Source: patient
Exam Limitations: none
Time Seen by Provider: 05/03/25 02:16
Nursing documentation reviewed up to this point in time: agreed with
History of Present Illness
History of Present Illness:
Note:
CHIEF COMPLAINT(S)
Chest pain and heartburn.
HISTORY OF PRESENT ILLNESS
The patient is an 84-year-old female with a history of hypertension and temporal arteritis, htn, GERD presenting with chest pain and heartburn that started on the current evening. The patient described the pain initially as heartburn that was
bothersome and persistent despite taking an [id number]-[id number] antacid like calcium carbonate (Tums), which provided minimal relief. Started after eating pizza before bed. It feels like her typical heart burn but seemed to last longer than usual. The
discomfort prevents her from sleeping and is described as central in the chest. She denies any exacerbation when lying down and reports no upper abdominal pain. Additionally, the patient experiences a sensation of abnormality in the left arm,
described as limp but without numbness or tingling. The patient has a history of temporal arteritis and hypertension, which is managed by several medications including hydroxychloroquine, prednisone, propranolol, nifedipine, and lisinopril. She
takes esomeprazole in the morning and follows with a reliability engineer annually, with no past episodes of angina or myocardial infarction recorded. The patient reported a past episode diagnosed as a transient ischemic attack (TIA) but is uncertain of
this diagnosis. In February, a computed tomography (CT) scan identified a pancreatic cyst following an adverse reaction to an epidural injection. She has never had known CAD/PR.
PAST MEDICAL AND SURGICAL HISTORY
- Temporal arteritis
- Hypertension
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
PHYSICAL EXAM
- Nursing notes reviewed and vital signs reviewed.
General: Patient is well appearing and in no acute distress; non-toxic
Skin: Warm and dry, no rashes or lesions
Head: Normocephalic, atraumatic
Eyes: Sclera non-icteric. EOMs intact.
Cardiac: Regular rate and rhythm, no murmurs, no tenderness to palpation of the external chest wall
Peripheral Vascular: No lower extremity swelling or edema
Pulm: Normal respiratory effort, no wheezes, rales, or rhonchi
Abdomen: No abdominal tenderness to palpation
Neuro: CN II-XII intact, no focal neurologic deficits.
Psychiatric: Appropriate mood and affect.
PLAN
1. Administer a gastrointestinal (GI) cocktail to address potential severe gastroesophageal reflux disease (GERD) or gastritis.
2. Perform a chest X-ray to inspect for potential pulmonary issues.
3. Await results for a troponin test to rule out myocardial infarction.
DIFFERENTIAL DIAGNOSIS
The Differential Diagnosis includes, in no particular order and is not limited to:
- Gastroesophageal reflux disease (GERD)
- Peptic ulcer disease
- Myocardial ischemia
- Esophagitis
- Gastritis
- Atypical angina
- Costochondritis
- Aortic dissection
- Pulmonary embolism
- Pancreatitis
SUMMARY OF ENCOUNTER
The patient presented with symptoms predominantly consistent with severe GERD or potential cardiac issues, characterized as central chest pain with accompanying indigestion-like symptoms. A comprehensive evaluation was sought to rule out cardiac
events with normal Electrocardiogram (EKG) results, pending further assessment via troponin levels and a chest X-ray. Immediate management included providing a GI cocktail to alleviate symptoms which may be related to gastroesophageal irritation.
Initial ECG nonischemic. Repeat ECG nonischemic. Until troponin undetectable repeat troponin is concerning for an acute coronary syndrome at 0.055. In the setting of chest pain STEMI present. GI medications did improve her symptoms but she still
does note the pain. She is given aspirin and nitro with complete relief of her pain. She continues to be well-appearing. Cardiology made aware of case. Patient started on heparin and referred for admission under medicine.
DISPOSITION
Patient will require admission to the hospital
ASSESSMENT
The primary consideration is severe GERD versus cardiac etiology given the nature of the discomfort and the patients medical history. The GI cocktail administration aligns with the suspected GERD.
EMERGENCY TREATMENTS ADMINISTERED
GI cocktail.
INDEPENDENT REVIEW OF LABS AND INTERPRETATION OF TESTS
My independent review of the EKG indicates no evidence of blockages or acute myocardial infarction.
PATIENT EDUCATION AND COUNSELING
The patient was informed that her chest pain did not appear due to any immediate blockages, as indicated by her EKG. Further counseling regarding GERD and lifestyle modifications could be recommended once her condition stabilizes.
MEDICATION RECONCILIATION
- Hydroxychloroquine
- Prednisone
- Propranolol
- Nifedipine
- Lisinopril
- Esomeprazole
- Atorvastatin
MEDICAL DECISION MAKING
See above narrative
ED attending aware of case
Concern for ACS
Patient referred for admission
DIAGNOSIS
Acute coronary syndrome
Past History
<Isabel Brown PA-C - Last Filed: 05/03/25 07:59>
Past History
ED Past Medical History: HTN, Hypercholesterolemia and Other (Migraines, temporal arteritis)
ED Past Surgical History: Orthopedic and Tonsilectomy
Social History
Tobacco: Non-smoker
Alcohol: None
Drug: None
Personal:
Living: with family
Employment: Retired
Family History
Family History: Other (Noncontributory)
Review of Systems
<Isabel Brown PA-C - Last Filed: 05/03/25 07:59>
Review of Systems
All Other Systems: ROS reviewed and negative except as documented in HPI and ROS
Phy Exam
<Isabel Brown PA-C - Last Filed: 05/03/25 07:59>
Physical Exam
Physical Exam:
see hpi
Scores
<Isabel Brown PA-C - Last Filed: 05/03/25 07:59>
Heart Score for Chest Pain Patients
STEMI patient?: No
History: Slightly or Non-Suspicious
ECG: Normal
Age: >/= 65 years
Risk Factors: 1 or 2 Risk Factors
Troponin: </= Normal Limit
Heart Score for Chest Pain Patients: 3
Heart Score Risk: 2.5% MACE over next 6 weeks
Course
<Isabel Brown PA-C - Last Filed: 05/03/25 07:59>
Orders/Labs/Results
Orders:
Orders
05/03/25 01:40
Electrocardiogram (*1) Urgent
Reason for Study: Chest Pain
Cardiac Monitoring- Treatment ONCE
EKG- Treatment ONCE
IV Insert/Care/Rem.- Treatment PRN
O2 Therapy [RESP] Urgent
Titrate/Wean O2 to maintain O2 sat greater than (%): 90
Special Instructions: Maintain sats >/=90%
Pulse Ox/spot Check [RESP] Urgent
Quantity: 1
Special Instructions: ON ROOM AIR
05/03/25 02:17
Complete Blood Count/With Diff Urgent
Comprehensive Metabolic Panel Urgent
Lipase Urgent
Troponin I Urgent
05/03/25 02:26
Add On- LAB Urgent
Tests Added?: lipase
05/03/25 03:15
Famotidine [Pepcid] 20 mg IV NOW STA
Mag Hydrox/Al Hydrox/Simeth [Maalox] 30 ml PO NOW STA
Pantoprazole [Protonix IV] 40 mg IV NOW STA
05/03/25 03:19
CR Chest - 2 Views Urgent
Comment:
Reason For Exam: chest pain
05/03/25 04:38
Troponin I Urgent
05/03/25 04:40
Electrocardiogram (*1) Urgent
Reason for Study: Chest Pain
05/03/25 04:51
Sucralfate Suspension [Carafate Suspension] 1 gm PO NOW STA
05/03/25 05:39
PTT Urgent
Comment: Obtain baseline before beginning heparin infusion if not already collected
Aspirin Chewable [Low Strength Aspirin] 324 mg PO NOW STA
Heparin 3,400 units IV NOW STA
Nitroglycerin Sublingual [Nitrostat (Sublingual)] 0.4 mg SL NOW STA
Pharmacy Request to Place See Dose Instructions PO NOW STA
Discontinue all Active Warfarin orders?: Yes
Nursing to Place Non Medication Order As Directed
Physician Order: PTT 6 hours after initial start of Heparin infusion
Above order entered?: Yes
05/03/25 05:45
PTT Urgent
Heparin 81041 Units/250 ml 25,000 units in 250 ml IV PER PROTOCOL
Weight to be used for heparin protocol in kilograms (kg):: 57
Protocol:: Cardiac Tx/Acute Coronary
PTT Goal Range to be used:: PTT 73 to 111 seconds
Order type:: Initial
INITIAL Infusion Dose (UNITS/KG/hr) & then follow protocol:: 12 units/kg/hr
Infusion Dose in UNITS/hr & then follow protocol (UNITS/hr):: 700
INFUSION RATE in mL/hr & then follow protocol (mL/hr):: 7
PTT less than or equal to 64 seconds:: Increase rate by 200 units/hr (+ 2 mL/hr)
PTT 64.1 to 72.9 seconds:: Increase rate by 100 units/hr (+ 1 mL/hr)
PTT 73 to 111 seconds:: Target Range. No change in rate.
PTT 111.1 to 130.9 seconds:: Decrease rate by 100 units/hr (- 1 mL/hr)
PTT 131 to 199.9 seconds:: HOLD for 1 hr. Then decrease rate by 200 units/hr (- 2 mL/hr)
PTT greater than or equal to 200 seconds:: HOLD for 2 hrs & Notify Provider. Then decrease by 200 units/hr (-
2 mL/hr)
Lab follow-up:: Each change, PTT q6h until 2 consecutive are therapeutic. Then PTT
daily.
05/03/25 06:[address] See Dose Instructions IV DIRECTED
05/03/25 06:25
Admit/Transfer Patient As Directed
Co-Sign Provider:
Level of Care: Observation services
Assign to:: Telemetry
Physician / Group: sAhwin
Diagnosis: nstemi
Reason for Telemetry: Chest Pain syndromes
Date to Stop Telemetry: 05/05/25
Time to Stop Telemetry: 11:00
05/03/25 06:26
PRN Pain Medication Management As Directed
May give lesser potent ordered pain med per pt: Yes
preference::
Protocol:: Medication orders for pain may be administered in a
manner that supports deferring to patient preference
when the pt is:
- Requesting an ordered lesser potent pain medication.
Least to most potent pain medications are defined
as: acetaminophen < NSAID < tramadol < opioids
(morphine, oxycodone, hydromorphone).
- Requesting a lesser dose of the same medication IF
ORDERED.
- Requesting a less intrusive route of administration
if both routes are prescribed by the provider (PO <
IV).
05/03/25 06:28
Code Status As Directed
Resuscitation Status: Full Code
05/03/25 12:17
PTT Urgent
Comment: heparin gtt
05/05/25 11:00
DC Protocol for Telemetry ONCE
Abnormal Lab Results
05/03/25 05/03/25
02:17 04:38
RBC 4.01 L 10^6/uL
(4.20-5.40)
Hct 36.2 L %
(37.0-47.0)
Absolute Monos (auto) 0.8 H 10^3/uL
(0.1-0.6)
Monocytes % 13.7 H %
(1.7-9.3)
BUN 32 H mg/dl
(7-17)
Glucose 103 H mg/dl
(70-99)
Calcium 10.7 H mg/dl
(8.4-10.2)
Troponin I 0.055 H* D ng/ml
05/03/25 02:17
05/03/25 02:17
Vital Signs
Initial and Last Documented VS:
Initial Vital Signs
Temp Pulse Resp BP Pulse Ox
98.4 F 70 22 196/84 96
05/03/25 01:38 05/03/25 01:38 05/03/25 01:38 05/03/25 01:38 05/03/25 01:38
Last Documented Vital Signs
Temp Pulse Resp BP Pulse Ox
98.4 F 61 15 133/61 98
05/03/25 01:38 05/03/25 06:30 05/03/25 06:30 05/03/25 06:07 05/03/25 06:30
<Paris Sanderson, DO - Last Filed: 05/03/25 07:38>
Orders/Labs/Results
Orders:
Orders
05/03/25 01:40
Electrocardiogram (*1) Urgent
Reason for Study: Chest Pain
Cardiac Monitoring- Treatment ONCE
EKG- Treatment ONCE
IV Insert/Care/Rem.- Treatment PRN
O2 Therapy [RESP] Urgent
Titrate/Wean O2 to maintain O2 sat greater than (%): 90
Special Instructions: Maintain sats >/=90%
Pulse Ox/spot Check [RESP] Urgent
Quantity: 1
Special Instructions: ON ROOM AIR
05/03/25 02:17
Complete Blood Count/With Diff Urgent
Comprehensive Metabolic Panel Urgent
Lipase Urgent
Troponin I Urgent
05/03/25 02:26
Add On- LAB Urgent
Tests Added?: lipase
05/03/25 03:15
Famotidine [Pepcid] 20 mg IV NOW STA
Mag Hydrox/Al Hydrox/Simeth [Maalox] 30 ml PO NOW STA
Pantoprazole [Protonix IV] 40 mg IV NOW STA
05/03/25 03:19
CR Chest - 2 Views Urgent
Comment:
Reason For Exam: chest pain
05/03/25 04:38
Troponin I Urgent
05/03/25 04:40
Electrocardiogram (*1) Urgent
Reason for Study: Chest Pain
05/03/25 04:51
Sucralfate Suspension [Carafate Suspension] 1 gm PO NOW STA
05/03/25 05:39
PTT Urgent
Comment: Obtain baseline before beginning heparin infusion if not already collected
Aspirin Chewable [Low Strength Aspirin] 324 mg PO NOW STA
Heparin 3,400 units IV NOW STA
Nitroglycerin Sublingual [Nitrostat (Sublingual)] 0.4 mg SL NOW STA
Pharmacy Request to Place See Dose Instructions PO NOW STA
Discontinue all Active Warfarin orders?: Yes
Nursing to Place Non Medication Order As Directed
Physician Order: PTT 6 hours after initial start of Heparin infusion
Above order entered?: Yes
05/03/25 05:45
PTT Urgent
Heparin 07996 Units/250 ml 25,000 units in 250 ml IV PER PROTOCOL
Weight to be used for heparin protocol in kilograms (kg):: 57
Protocol:: Cardiac Tx/Acute Coronary
PTT Goal Range to be used:: PTT 73 to 111 seconds
Order type:: Initial
INITIAL Infusion Dose (UNITS/KG/hr) & then follow protocol:: 12 units/kg/hr
Infusion Dose in UNITS/hr & then follow protocol (UNITS/hr):: 700
INFUSION RATE in mL/hr & then follow protocol (mL/hr):: 7
PTT less than or equal to 64 seconds:: Increase rate by 200 units/hr (+ 2 mL/hr)
PTT 64.1 to 72.9 seconds:: Increase rate by 100 units/hr (+ 1 mL/hr)
PTT 73 to 111 seconds:: Target Range. No change in rate.
PTT 111.1 to 130.9 seconds:: Decrease rate by 100 units/hr (- 1 mL/hr)
PTT 131 to 199.9 seconds:: HOLD for 1 hr. Then decrease rate by 200 units/hr (- 2 mL/hr)
PTT greater than or equal to 200 seconds:: HOLD for 2 hrs & Notify Provider. Then decrease by 200 units/hr (-
2 mL/hr)
Lab follow-up:: Each change, PTT q6h until 2 consecutive are therapeutic. Then PTT
daily.
05/03/25 06:[address] See Dose Instructions IV DIRECTED
05/03/25 06:25
Admit/Transfer Patient As Directed
Co-Sign Provider:
Level of Care: Observation services
Assign to:: Telemetry
Physician / Group: Ashwin
Diagnosis: nstemi
Reason for Telemetry: Chest Pain syndromes
Date to Stop Telemetry: 05/05/25
Time to Stop Telemetry: 11:00
05/03/25 06:26
PRN Pain Medication Management As Directed
May give lesser potent ordered pain med per pt: Yes
preference::
Protocol:: Medication orders for pain may be administered in a
manner that supports deferring to patient preference
when the pt is:
- Requesting an ordered lesser potent pain medication.
Least to most potent pain medications are defined
as: acetaminophen < NSAID < tramadol < opioids
(morphine, oxycodone, hydromorphone).
- Requesting a lesser dose of the same medication IF
ORDERED.
- Requesting a less intrusive route of administration
if both routes are prescribed by the provider (PO <
IV).
05/03/25 06:28
Code Status As Directed
Resuscitation Status: Full Code
05/03/25 12:17
PTT Urgent
Comment: heparin gtt
05/05/25 11:00
DC Protocol for Telemetry ONCE
Abnormal Lab Results
05/03/25 05/03/25
02:17 04:38
RBC 4.01 L 10^6/uL
(4.20-5.40)
Hct 36.2 L %
(37.0-47.0)
Absolute Monos (auto) 0.8 H 10^3/uL
(0.1-0.6)
Monocytes % 13.7 H %
(1.7-9.3)
BUN 32 H mg/dl
(7-17)
Glucose 103 H mg/dl
(70-99)
Calcium 10.7 H mg/dl
(8.4-10.2)
Troponin I 0.055 H* D ng/ml
05/03/25 02:17
05/03/25 02:17
Vital Signs
Initial and Last Documented VS:
Initial Vital Signs
Temp Pulse Resp BP Pulse Ox
98.4 F 70 22 196/84 96
05/03/25 01:38 05/03/25 01:38 05/03/25 01:38 05/03/25 01:38 05/03/25 01:38
Last Documented Vital Signs
Temp Pulse Resp BP Pulse Ox
98.4 F 61 15 133/61 98
05/03/25 01:38 05/03/25 06:30 05/03/25 06:30 05/03/25 06:07 05/03/25 06:30
<Isabel Brown PA-C - Last Filed: 05/03/25 07:59>
*Pulse Oximetry
SaO2: 97
Oxygen Mode of Delivery: Room air
Patient hypoxic: no
*Critical Care Note
Total Time (30-74mins, 75-104mins- exclusive of procedures): Not Applicable
<Isabel Brown PA-C - Last Filed: 05/03/25 07:59>
Update Note
Update Note:
4:53 AM
Update, patient notes a degree of improvement of her symptoms but discomfort still present
Will give dose of carafate
ED Attending Note
<Isabel Brown PA-C - Last Filed: 05/03/25 07:59>
-
Portions of this chart may have been created with voice recognition software.� Occasional wrong word or��sound alike� substitutions may have occurred due to the inherent limitations of voice recognition software.
<Paris Sanderson DO - Last Filed: 05/03/25 07:38>
ED Attending Note
Patient seen and examined by attending physician: Yes
I performed a history and physical exam of patient and discussed management with resident, I reviewed resident's note and agree with documented findings and plan of care.: Yes
ED Attending Note:
84-year-old woman with complaints of 'heartburn' that began around 8 PM. Admits to eating pizza tonight and was concerned for acid reflux.
Heartburn persists, questionably minimally improved with an acid.
She has history of hypertension, no prior history of CAD.
84-year-old woman appears somewhat younger than stated age. Bright alert, pleasant, appears in no acute distress.
Heart is regular rate and rhythm.
Lungs are clear to auscultation.
EKG shows normal sinus rhythm, normal axis, normal intervals, no acute ST-T wave abnormalities. Repeat EKG unchanged.
Initial troponin normal but upon repeat has trended up to 0.055.
Very mild substernal chest pain persist thus we will trial sublingual nitroglycerin, give 324 mg chewable aspirin and will initiate IV heparin for acute coronary syndrome.
Will admit to hospital service with consult to cardiology.
Discharge Plan
Departure
Patient Disposition: Admit
Date of Disposition: 05/03/25
Time of Disposition: 05:49
Admit to: Med/Surg
Presentation/result/management discussed w/ accepting MD/DO: Hospitalist
Patient with high blood pressure during this ER visit?: Yes
Condition: Fair
Discharge Problem:
Acute coronary syndrome
Interventions
Interventions:
*Risk Screen - Suicide Last Done: 05/03/25 01:38
*General Assessment Last Done: 05/03/25 02:22
*Neglect/Abuse Screening Last Done: 05/03/25 01:38
*ED COVID-19 Vaccine History Last Done: 05/03/25 02:22
*ED Influenza Vaccine History Last Done: 05/03/25 02:22
[facility] Fall Risk Assessment Tool Last Done: 05/03/25 02:21
ED- Cardiac Assessment Last Done: 05/03/25 02:23
[2025-05-03 02:54] LABS: ALT (SGPT) 21 U/L (0-35); AST (SGOT) 27 U/L (14-36); Albumin 4.4 g/dl (3.5-5.0); Alkaline Phosphatase 112 U/L (38-126); Blood Urea Nitrogen 32 mg/dl (7-17); Calcium 10.7 mg/dl (8.4-10.2); Carbon Dioxide 24 mmol/L (22-30); Chloride 106 mmol/L (98-107); Estimated Creatinine Clearance 35 ml/min; Glucose 103 mg/dl (70-99); Sodium 137 mmol/L (135-145); Total Protein 7.1 g/dl (6.3-8.2); eGFR > 60.00
[2025-05-03 03:04] LABS: Troponin I < 0.012 ng/ml
[2025-05-03 03:05] LABS: Potassium 4.7 mmol/L (3.5-5.1)
[2025-05-03 03:22] LABS: Lipase 267 U/L (23-300)
[2025-05-03] MEDS: MAALOX 30 ML PO (03:28)
[2025-05-03] MEDS: PEPCID 20 MG IV (03:29)
[2025-05-03] MEDS: PROTONIX IV 40 MG IV (03:29)
[2025-05-03] MEDS: CARAFATE SUSPENSION 1 GM PO (05:06)
[2025-05-03 05:29] LABS: Troponin I 0.055 ng/ml
[2025-05-03] MEDS: LOW STRENGTH ASPIRIN 324 MG PO (05:59)
[2025-05-03] MEDS: NITROSTAT (SUBLINGUAL) 0.4 MG SL (06:00)
[2025-05-03 06:14] LABS: APTT 26.7 Sec (23.4-35.0)
--- NOTE | 2025-05-03 06:16 | HPS.HSE ---
Family Physician
-
Family Physician: Rene Calderón
Chief Complaint
-
Chest pain
History of Present Illness
This is a 84-year-old female with past medical history significant for hypertension, hyperlipidemia, temporal arteritis, migraine headaches and chronic back pain who presents to the emergency department with epigastric and chest pain.
Patient reports onset of pain after consuming pizza last evening. The pain was initially epigastric then radiating into her chest and associated with some mild nausea. She feels a pain in the back of her throat. She reports mild unusual sensation
in her left arm which has resolved. She reports that the pain was intermittent lasting seconds before resolving and then returning. She denies any shortness of breath. She denies any pleuritic symptoms. She had improvement with a GI cocktail
initially. However the pain recurred. She denies any prior history of exertional chest pain, dyspnea on exertion, palpitations lower extremity edema orthopnea or PND. She has no known coronary artery disease. She was recently found to have a
pancreatic cyst.
In the ED she was afebrile, blood pressure 123/60 with a pulse rate of 63 and she was satting 98% on room air. ECG shows normal sinus rhythm at rate of [address] or T wave changes. A repeat ECG shows sinus bradycardia rate of 53. Initial
troponin was 0.012, the second troponin had elevated to 0.05.
Chest x-ray shows no acute infiltrate. CBC was unremarked. Electrolytes BUN and creatinine were all within normal range.
Medical History
Past Medical History
Past Medical History: Reports Other
Additional Past Medical History:
Hypertension, hyperlipidemia, coronary artery disease, giant cell arteritis, basal cell carcinoma
Past Surgical History: Reports None
Social History
Tobacco: Non-smoker
Alcohol: None
Drug: None
Personal:
Living: With Family
Family History
Family History: Not pertinent
Allergies / Home Medications
Allergies reflects when Allergies were last updated in [employer].
Home Medications with original date entered in [employer]
Allergy/Medication List:
Allergies
Allergy/AdvReac Type Severity Reaction Status Date / Time
tramadol Allergy Vomiting Verified 03/06/25 16:05
hydromorphone (From Dilaudid) AdvReac Severe Nausea / Verified 03/06/25 16:05
Vomiting
doxycycline AdvReac Mild Unknown Verified 03/06/25 16:05
moxifloxacin (From Avelox) AdvReac Mild Unknown Verified 03/06/25 16:05
Home Medications
aspirin 81 mg tablet,delayed release (Aspir-Low) 81 mg PO DAILY Blood clot prevention/tx 12/26/19
atorvastatin 10 mg tablet 40 mg PO QPM High cholesterol 12/26/19
diphenhydramine HCl 25 mg capsule (Sleep Aid (diphenhydramine)) 50 mg PO HS Sleep 12/26/19
lisinopril 40 mg tablet 40 mg PO DAILY Blood pressure 12/26/19
nifedipine 30 mg tablet,extended release 24 hr 30 mg PO BID Blood pressure 12/26/19
propranolol 20 mg tablet 20 mg PO BID Blood pressure 12/26/19
cholecalciferol (vitamin D3) 25 mcg (1,000 unit) capsule (Vitamin D3) 1,000 unit PO DAILY Supplement 01/18/21
esomeprazole magnesium 40 mg capsule,delayed release 20 mg PO DAILY Gastrointestinal issue 01/18/21
epinephrine 0.3 mg/0.3 mL injection, auto-injector (EpiPen) 0.3 mg (0.3 mL) IM .STAT PRN anaphylaxis #1 ea 01/13/25
hydroxychloroquine 100 mg tablet 200 mg PO DAILY 01/13/25
prednisone 1 mg tablet 1 mg PO DAILY 01/13/25
bhcbrgdyrr-ssvpdtg-pmfvvrcq 50 mg-325 mg-40 mg tablet 1 tab PO PRN PRN headache 03/06/25
guar gum 1 tbsp PO DAILY 03/06/25
ondansetron HCl 4 mg tablet 4 mg PO PRN PRN nausea 03/06/25
Review of Systems
-
Constitutional: Reports No Symptoms
EENT: Reports No Symptoms
Respiratory: Reports No Symptoms
Cardiac: Reports Chest Pain
Abdomen/GI: Reports No Symptoms
: Reports No Symptoms
Musculoskeletal: Reports No Symptoms
Skin: Reports No Symptoms
Neurological: Reports No Symptoms
Endocrine: Reports No Symptoms
Hematologic/Lymphatic: Reports No Symptoms
Psych: Reports No Symptoms
Physical Exam
Vital Signs
Vital Signs
Temp Pulse Resp BP Pulse Ox
98.4 F 63 18 133/61 98
05/03/25 01:38 05/03/25 06:07 05/03/25 06:07 05/03/25 06:07 05/03/25 05:30
Physical Exam
General: Well Developed, Well Nourished and No Apparent Distress
HEENT: NormoCephalic, Moist mucous membranes and Atraumatic
Respiratory: Clear
Cardiac: S1/S2 and Regular Rhythm; No Murmur or Rub
GI: Soft, Non Tender, Non Distended and Normal Bowel Sounds; No Organomegaly
Rectal: Deferred by Provider
Musculoskeletal: No Clubbing, No Cyanosis and No Edema
Skin: No Rash
Neuro: AO x 3 and Nonfocal/grossly intact
Psych: Calm
Laboratory Results
-
05/03/25 02:17
05/03/25 02:17
Laboratory Results
Total Bilirubin 0.4 mg/dl (0.2-1.3) 05/03/25 02:17
AST 27 U/L (14-36) 05/03/25 02:17
ALT 21 U/L (0-35) 05/03/25 02:17
Alkaline Phosphatase 112 U/L (38-126) 05/03/25 02:17
Troponin I 0.055 ng/ml H* D 05/03/25 04:38
Lipase 267 U/L (23-300) 05/03/25 02:17
Data Reviewed
-
Diagnostic Radiology: Image Personally Visualized and interpreted
Medical Tests (Nuc Med, Echo, EKG etc): Image Personally Visualized and interpreted
Lab Data: Labs Reviewed by me
Old Records: Reviewed
Impression/Plan
-
IMPRESSION:
84-year-old female with past medical history of hyperlipidemia, hypertension, temporal arteritis migraine headaches chronic back pain who presents to the emergency department with epigastric and chest pain and was found to have elevated troponin
consistent with NSTEMI. Patient is currently chest pain-free. Has no prior history of CAD.
PLAN:
Chest pain/NSTEMI
- Admit to telemetry
- Continue to trend troponin
� Continue heparin drip
� Aspirin 324 given, continue 81 mg daily and statin
� Echocardiogram
� Nitroglycerin as needed
� Will continue with the GI cocktail for now as needed
� Cardiology consult
Hypertension
� Continue patient's lisinopril, propranolol and nifedipine
Temporal arteritis
� Patient is on prednisone 1 mg daily
DVT prophylaxis�on anticoagulation
CODE STATUS�full code
[2025-05-03] MEDS: HEPARIN 25000 UNITS/250 ML IV (06:17)
[2025-05-03] MEDS: HEPARIN 3400 UNITS IV (06:25)
--- NOTE | 2025-05-03 09:49 | CON.CAR ---
Addendum entered and electronically signed by Esther Fregoso DO 05/03/25 14:33:
I saw and examined the patient.
The Park Warden's note was reviewed and I agree with the note.
Comment: Patient was seen and examined with cardiac PA. at bedside. Patient is an 84-year-old female with past medical history significant for labile hypertension, hyperlipidemia, temporal arteritis, migraine headaches and chronic back pain
who presented to emergency department 05/03/2025 with chest pain. Patient reports she had pizza yesterday for dinner and later that evening she developed 'heartburn sensation'around 8 PM. Discomfort waxed and waned throughout the evening radiating
up to her throat and into her left arm. No associated nausea/vomiting, dizziness or diaphoresis. When symptoms fail to neal she presented to the emergency room for further evaluation. She denies prior episodes. In the emergency department,
initial blood pressure found to be elevated at 196/84. EKG demonstrated sinus bradycardia without ischemic changes. Initial troponin was negative however repeat troponin 0.055. Chest x-ray showed no acute cardiopulmonary abnormality. Patient was
provided sublingual nitroglycerin and aspirin with improvement of symptoms. She is on aspirin 81 mg daily at home. Given elevated troponin she was started on IV heparin drip and currently is chest pain/heartburn free.
General: No acute distress, AAOX3
Neck: Negative JVD
Heart: Regular, positive S1/S2, No murmur
Lungs: CTA b/l, negative wheezes/rales/rhonchi
Abd: Positive BS, NT/ND, neg rebound/rigidity/guarding
Ext: Negative cyanosis/clubbing/edema
Neuro: nonfocal
Plan:
Chest pain syndrome with positive troponin concerning for angina/NSTEMI
-Chest pain-free after sublingual nitroglycerin in the emergency department
-Troponin initially less than 0.012��0.055��0.094
-Continue heparin drip
-Continue ASA 81 mg
-Check echocardiogram
-Hemoglobin A1c 5.5%
-Lipid profile: Total cholesterol 149, LDL 41, HDL 85, triglycerides 117.
-Lipase 267
- I discussed her abnormal CT scan from February done for nausea vomiting with radiology. Radiology states that pancreatic head cyst is likely benign with no high risk features.
-Will proceed with left heart catheterization. Patient is in agreement
Hypertensive urgency
- Longstanding history of labile hypertension followed by nephrology with negative outpatient workup as outpatient in 2018
- Blood pressure improving. Continue to monitor.
- For now we will continue her outpatient antihypertensive regimen which includes propranolol, lisinopril and nifedipine however pending cardiac catheterization will consider changes for better control. Patient is also followed routinely with
nephrology
Temporal arteritis
- Continue low-dose prednisone/Plaquenil
Chronic renal insufficiency with proteinuria�creatinine stable. Will follow postcardiac catheterization
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 Discussed with radiology, likely benign without high risk features. Patient is scheduled for a dedicated MRI in May. Of note patient does have family history of pancreatic CA in her
father
Will follow with you
Original Note:
Consultation
Consultation Request
Date/Time Consultation Requested: 05/03/2025
Date/Time Consultation Performed: 05/03/2025
Requesting Provider: Isabel Brown
Performing Provider: Lacy Barba PA-C for Dr. Esther Fregoso
Reason for Consultation: Chest pain
Medical History
-
History of Present Illness:
Patient is an 84-year-old female with past medical history significant for labile hypertension, hyperlipidemia, temporal arteritis, migraine headaches and chronic back pain who presented to emergency department 05/03/2025 with heartburn/chest pain.
Patient reports she had pizza yesterday for dinner and later that evening she developed heartburn sensation around 8 PM. Discomfort persisted throughout the evening and patient went to bed but was unable to sleep. She then noted some radiation of
epigastric/chest pain radiating up towards throat and had a strange sensation in her left arm prompting her to come to emergency department. Initial blood pressure found to be elevated at 196/84. EKG demonstrated sinus bradycardia without ischemic
changes. Initial troponin was negative however repeat troponin 0.055. Chest x-ray showed no acute cardiopulmonary abnormality. Patient was provided sublingual nitroglycerin, aspirin with improvement of symptoms. Given elevated troponin she was
started on IV heparin drip and currently is chest pain/heartburn free.
PMH:
Hypertension
Hyperlipidemia
Temporal arteritis
Vertigo
Migraine headaches
Chronic back pain
Basal cell carcinoma
Pancreatic mass/cyst on CT imaging February 2025
Past Medical History
Past Medical History: Other (See HPI)
Past Surgical History: Orthopedic and Other (Right total hip replacement October 2021 at [facility])
Social History
Tobacco: Non-Smoker
Alcohol: None
Drug: None
Personal:
Living: With Family
Family History
Family History: Other (Father had coronary artery disease in his 50s and history of CABG. Also pancreatic cancer. Mother had history of coronary artery disease/CABG, hypertension stroke and diabetes)
Allergies / Home Medications
Allergy/AdvReac Type Severity Reaction Status Date / Time
tramadol Allergy Vomiting Verified 05/03/25 01:40
hydromorphone (From Dilaudid) AdvReac Severe Nausea / Verified 05/03/25 01:40
Vomiting
doxycycline AdvReac Mild Unknown Verified 05/03/25 01:40
moxifloxacin (From Avelox) AdvReac Mild Unknown Verified 05/03/25 01:40
�Medication �Instructions �Recorded �Confirmed �Type
lisinopril 40 mg tablet 20 mg PO DAILY Blood pressure 12/26/19 05/03/25 History
nifedipine 30 mg tablet,extended 30 mg PO BID Blood pressure 12/26/19 05/03/25 History
release 24 hr
propranolol 20 mg tablet 20 mg PO BID Blood pressure 12/26/19 05/03/25 History
cholecalciferol (vitamin D3) 25 1,000 unit PO DAILY Supplement 01/18/21 05/03/25 History
mcg (1,000 unit) capsule (Vitamin
D3)
prednisone 1 mg tablet 1 mg PO DAILY 01/13/25 05/03/25 History
aspirin 81 mg tablet,delayed 81 mg PO DAILY 05/03/25 05/03/25 History
release
diphenhydramine HCl 25 mg capsule 25 mg PO HS 05/03/25 05/03/25 History
(ZzzQuil)
esomeprazole magnesium 20 mg 20 mg PO DAILY 05/03/25 05/03/25 History
capsule,delayed release (Nexium)
hydroxychloroquine 200 mg tablet 200 mg PO DAILY 05/03/25 05/03/25 History
(Plaquenil)
psyllium 1 packet PO DAILY 05/03/25 05/03/25 History
Review of Systems
-
History Source: Patient
All other systems: Negative unless noted
Physical Exam
Vital Signs
Temp Pulse Resp BP Pulse Ox
98.7 F 59 18 143/53 98
05/03/25 09:35 05/03/25 09:35 05/03/25 09:35 05/03/25 07:00 05/03/25 09:35
GEN: No distress, awake, Ox3, lying in bed
HEENT: supple, anicteric, mmm
LUNGS: CTA, no wheezes/rales
CV: Reg, S1/S2, no murmur, rub or gallop
ABD: soft, BS+, NT/ND
EXT: No edema, clubbing or cyanosis
NEURO: Gross non-focal
SKIN: No rash, warm, dry, pink
Lab Results
05/03/25 02:17
05/03/25 02:17
Troponin I 0.055 ng/ml H* D 05/03/25 04:38
Impression / Plan
-
Family Physician: Rene Calderón
Flag Signalman: Dr. Prince Van
Impression:
Presented 05/03/2025 with epigastric/chest pain with radiation into arm and throat
Epigastric/chest pain
Abnormal troponin
Hypertensive urgency
Hypertension
Hyperlipidemia
Temporal arteritis
Vertigo
Migraine headaches
Chronic back pain
Basal cell carcinoma
Pancreatic mass/cyst on CT imaging February 2025
Stress echo 01/13/2021: No evidence of induced ischemia at 9 METS, 98% predicted max heart rate. No exercise-induced arrhythmias, above average exercise capacity
Echo 12/01/2020: EF 60 to 65%. Normal regional wall motion.
Plan:
Presented 05/03/2025 with epigastric/chest pain with radiation into arm and throat. Also found to be hypertensive 196/84. Symptoms improved with aspirin and sublingual nitroglycerin and patient currently chest pain-free on heparin drip.
-EKG sinus bradycardia without ischemic changes. No arrhythmias noted on telemetry.
-Abnormal troponin. Initial troponin undetectable however repeat elevated at 0.055. Third troponin currently pending. Concern for NSTEMI versus hypertensive urgency causing nonischemic cardial myocardial injury. Await third troponin. If troponin
continuing to elevate may need to proceed with cardiac catheterization. If troponin flat or falling could consider ischemic evaluation with stress test
-Continue heparin drip
-Continue ASA 81 mg
-Check echocardiogram
-Check lipids and hemoglobin A1c
-Keep n.p.o.
Hypertensive urgency
- Longstanding history of labile hypertension followed by nephrology with negative outpatient workup as outpatient in 2018
- Blood pressure improving. Continue to monitor.
- Continue propranolol, nifedipine and lisinopril
Temporal arteritis
- Continue low-dose prednisone
She was found to have a pancreatic mass/cyst on CT imaging February 2025. Unfortunately, she has been unable to get MRI as outpt and is schedule mid May 2025. Will need to investigate this further. Consider getting MRI of abd this admission if
high suspicion for CA. Of note patient does have family history of pancreatic CA in her father
HPI 05/03/2025:
Patient is an 84-year-old female with past medical history significant for labile hypertension, hyperlipidemia, temporal arteritis, migraine headaches and chronic back pain who presented to emergency department 05/03/2025 with heartburn/chest pain.
Patient reports she had pizza yesterday for dinner and later that evening she developed heartburn sensation around 8 PM. Discomfort persisted throughout the evening and patient went to bed but was unable to sleep. She then noted some radiation of
epigastric/chest pain radiating up towards throat and had a strange sensation in her left arm prompting her to come to emergency department. Initial blood pressure found to be elevated at 196/84. EKG demonstrated sinus bradycardia without ischemic
changes. Initial troponin was negative however repeat troponin 0.055. Chest x-ray showed no acute cardiopulmonary abnormality. Patient was provided sublingual nitroglycerin, aspirin with improvement of symptoms. Given elevated troponin she was
started on IV heparin drip and currently is chest pain/heartburn free.
Data Reviewed
-
EKG: Report Reviewed by me, Discussed with Physician and Discussed with Patient
Radiology: Report Reviewed by me, Discussed with Physician and Discussed with Patient
Labs: Labs Reviewed by me, Discussed with Physician and Discussed with Patient
Old Records: Reviewed
[2025-05-03] MEDS: ZESTRIL 40 MG PO (10:32)
[2025-05-03] MEDS: PROCARDIA XL (EXTENDED RELEASE) 30 MG PO ×2 (10:32→20:22)
[2025-05-03] MEDS: INDERAL 20 MG PO (10:32)
--- NOTE | 2025-05-03 10:41 | PTCARENOTE ---
Patient received as admission from ED, ambulated independently into the room. AOx3. Denies chest pain or pressure at this time. Denies N/V. Denies feeling lightheaded or dizzy. Sinus hoang on telemetry. SaO2 on RA 98%. Heparin gtt infusing at
700units/hr. Ordered labs drawn and sent, ECG completed. Patient oriented to room and unit. Call franklin within reach. Bed in lowest position, wheels locked. Plan of care discussed including NPO status until third troponin level is resulted. Care
ongoing.
[2025-05-03 11:04] LABS: Troponin I 0.094 ng/ml
[2025-05-03 11:12] LABS: HDL Cholesterol 85 mg/dl; LDL Cholesterol, Calculated 41 mg/dl; Very Low Density Lipoprotein 23 mg/dl (0-30)
[2025-05-03 12:13] LABS: Glycohemoglobin (HgbA1c) 5.5 % (4.0-5.9)
--- NOTE | 2025-05-03 12:20 | CM ---
Reviewed chart. Met with Mrs. Diaz to review discharge plans. She states prior to admission she resides with her spouse in a three story home with one step to enter. She stases she she has a full flight of steps to get to bedroom/full
bathroom. She states she has a powder room on the first floor. She states prior to admission she was independent with ambulation and adls. She states she [place] not have any DME in the [place]. She states she has a prescription plan and uses [facility]. The discharge plan is to return home with her spouse when medically stable.
[2025-05-03 13:20] LABS: APTT 125.2 Sec (23.4-35.0)
[2025-05-03] MEDS: NSS 1000 IV ×2 (15:29→16:20)
--- NOTE | 2025-05-03 15:29 | ITS.CL.CATH ---
Acoustic Engineer - Catheterization
Cardiac Catheterization
Procedure Report:
LEFT HEART CATHETERIZATION
Date of Procedure: May 03, 2025
Referring: Dr. Prince Van
PROCEDURES:
1. Left heart catheterization with coronary and single-plane left ventriculography
INDICATION: Chest pressure, nausea, mildly elevated troponin initially less than 0.012 and slowly rising to 0.094 ng/mL
ACCESS: Right radial artery, 6 Jordanian sheath
HEMODYNAMICS : (mmHg)
AO (s/d) : 125/52, 77
LV (s/d) : 124/13
LVEDP : 15
CORONARY FINDINGS
DOMINANCE: Right
LEFT MAIN: Normal
LEFT ANTERIOR DESCENDING: The LAD arises normally from the left main and runs in the anterior interventricular groove. The LAD has a 30% stenosis in its midportion beyond approximately arising first diagonal branch. The remainder of the LAD has
only minor luminal irregularities. The first diagonal branch is widely patent.
RAMUS: Minor irregularities
CIRCUMFLEX: The circumflex is small with minor luminal irregularities
RIGHT CORONARY ARTERY: The right coronary artery is a dominant vessel that is widely patent. The PDA is widely patent. The posterolateral branch is widely patent
VENTRICULOGRAPHY: Left ventriculography is performed in an RAYMUNDO projection. The digital single-plane left ventricular ejection fraction is estimated at greater than 60% and no regional wall motion abnormalities are noted
SEDATION: 18 minutes of procedural sedation was utilized. An independent medical records administrator was present to assist with and help manage the patient's level of consciousness and physiologic status.
RADIATION SUMMARY: Fluoro Time (min): 2.3, Dose (mGy): 137, DAP (Gy.cm2) : 9.7
Closure Device: Vasc band
CONCLUSIONS
1. Nonobstructive coronary disease
2. Preserved LV systolic function
RECOMMENDATIONS
1. Needs good blood pressure control. May consider switching propranolol to more cardioselective beta-vishnu. Will discuss nifedipine versus amlodipine with nephrology.
2. Continue high intensity statin
3. Aspirin and clopidogrel for 3-12 months followed by aspirin daily
4. Continue GI prophylaxis given therapy with prednisone and dual antiplatelet treatment.
5. Echocardiogram with low threshold to obtain CT angio chest to exclude PE if pulmonary pressures are significantly elevated
Copy to: Dr. Prince Van
--- NOTE | 2025-05-03 15:34 | PTCARENOTE ---
Patient to [facility]] at approximately 1415 and returned at 1520. Sinus hoang/sinus rhythm on telemetry. Oxygen saturation 97% on room air. The patient denies chest pain or pressure. Denies nausea. Right radial TR band in place, radial pulse palpable, pox
on right hand 97%. Post PCI IVF infusing per order. Call franklin within reach. Care ongoing.
[2025-05-03] MEDS: PLAQUENIL 200 MG PO (16:19)
[2025-05-03] MEDS: PLAVIX 300 MG PO (16:19)
[2025-05-03] MEDS: DELTASONE 1 MG PO (16:19)
[2025-05-03] MEDS: LIPITOR 40 MG PO (16:53)
[2025-05-03 17:46] LABS: Troponin I 0.066 ng/ml
[2025-05-03] MEDS: COREG 3.125 MG PO (20:23)
--- NOTE | 2025-05-03 22:19 | PTCARENOTE ---
Assumed care on pt at 1900, aaox3, voices no complaints of cp or SOB. R band to right wrist intact with scant oozing underneath, removed at 2100, area free of bleeding or hematomas, good radial pulses and circulation. Pox 97% right hand. SR/SB on
tele HR 60's. IVF's infusing as per order. POC ongoing, call franklin within reach.
[2025-05-03] MEDS: TYLENOL 650 MG PO (23:47)
[2025-05-04 03:24] VITALS: BP 129/51
[2025-05-04 04:15] LABS: Blood Urea Nitrogen 22 mg/dl (7-17); Calcium 9.8 mg/dl (8.4-10.2); Carbon Dioxide 27 mmol/L (22-30); Chloride 108 mmol/L (98-107); Estimated Creatinine Clearance 31 ml/min; Glucose 93 mg/dl (70-99); Potassium 4.2 mmol/L (3.5-5.1); Sodium 138 mmol/L (135-145); eGFR 56.25
[2025-05-04 08:06] VITALS: BP 128/49
[2025-05-04] MEDS: PROTONIX IV 40 MG IV (08:06)
[2025-05-04] MEDS: NSS (PRESERVATIVE FREE) 10 ML IV (08:06)
[2025-05-04] MEDS: DELTASONE 1 MG PO (08:07)
[2025-05-04] MEDS: PROCARDIA XL (EXTENDED RELEASE) 30 MG PO (08:07)
[2025-05-04] MEDS: ZESTRIL 40 MG PO (08:08)
[2025-05-04] MEDS: PLAQUENIL 200 MG PO (08:08)
[2025-05-04] MEDS: ASPIR LOW (ENTERIC COATED) 81 MG PO (08:08)
[2025-05-04] MEDS: PLAVIX 75 MG PO (08:08)
[2025-05-04] MEDS: COREG 3.125 MG PO (08:08)
--- NOTE | 2025-05-04 09:01 | PTCARENOTE ---
Patient received at change of shift resting in the bed. SB/SR on telemetry. SaO2 on RA 97%. Right radial cath site with gauze and tegaderm C/D/I, no oozing and no ecchymosis noted, surrounding area soft to palpation, radial pulse palpable. The
patient denies chest pain or pressure. Plan of care discussed. Call franklin within reach. Care ongoing.
--- NOTE | 2025-05-04 10:15 | CM ---
Reviewed chart. Met with Mrs. Diaz to review discharge plans. She states she is feeling well and maybe able to go home soon. Prior to admission she resides with her spouse in a three story home with one step to enter. She has a full flight of
steps to get to bedroom/full bathroom. She has a powder room on the first floor. Prior to admission she was independent with ambulation and adls. She does not have any DME in the home. She has a prescription plan and uses [facility]. The
discharge plan is to return home with her spouse when medically stable.
[2025-05-04 11:07] VITALS: BP 94/52
--- NOTE | 2025-05-04 12:30 | W.PN.CARDCBS ---
Today's Communication / Plan
-
Patient is stable for discharge home with outpatient cardiac follow-up
Impression / Plan
-
Family Physician: Rene Calderón
Tugboat Engineer: Dr. Prince Van
Impression:
Presented 05/03/2025 with epigastric/chest pain with radiation into arm and throat
Epigastric/chest pain
Abnormal troponin
Hypertensive urgency
Hypertension
Hyperlipidemia
Temporal arteritis
Vertigo
Migraine headaches
Chronic back pain
Basal cell carcinoma
Pancreatic mass/cyst on CT imaging February 2025
Stress echo 01/13/2021: No evidence of induced ischemia at 9 METS, 98% predicted max heart rate. No exercise-induced arrhythmias, above average exercise capacity
Echo 12/01/2020: EF 60 to 65%. Normal regional wall motion.
Plan:
84-year-old female presenting with chest pain syndrome and positive troponin/NSTEMI in the setting of hypertensive urgency status postcardiac catheterization 05/03/25 with nonobstructive coronary disease.
-Reviewed findings of left heart catheterization: Minor luminal irregularities and 30% stenosis of the mid LAD.
-Peak troponin 0.094
-No further chest pain
-Radial site intact
-EKG sinus bradycardia without ischemic changes. No arrhythmias noted on telemetry.
-Continue aspirin/Plavix for 3 to 6 months and then aspirin indefinitely
-Lipid profile 05/03/2025: Total cholesterol 149, triglycerides 117, LDL 41, HDL 85. Continue atorvastatin 40 mg daily.
-Hemoglobin A1c 5.5%
-Postprocedure renal function normal, creatinine 1. Hemoglobin 12.1
-2D echocardiogram with normal left ventricular size and systolic function and EF 68% by volumetric assessment normal diastolic function. Sclerotic trileaflet aortic valve with no evidence of stenosis or aortic regurgitation. Trace mitral
regurgitation. Mild tricuspid regurgitation. Moderate pulmonic regurgitation. No pericardial effusion.
-Focus on blood pressure control and risk reduction.
Hypertensive urgency with history of hypertension
- Longstanding history of labile hypertension followed by nephrology with negative outpatient workup as outpatient in 2018
- Propranolol changed to carvedilol. For now continue lisinopril 40 mg daily and Procardia 30 mg twice daily.
Temporal arteritis
- Continue low-dose prednisone
She was found to have a pancreatic mass/cyst on CT imaging February 2025/ History of pancreatic cancer in her father. CT scan was reviewed with radiology without high risk features. She is scheduled for MRI in mid May.
Discharge home today with outpatient cardiac follow-up
HPI 05/03/2025:
Patient is an 84-year-old female with past medical history significant for labile hypertension, hyperlipidemia, temporal arteritis, migraine headaches and chronic back pain who presented to emergency department 05/03/2025 with heartburn/chest pain.
Patient reports she had pizza yesterday for dinner and later that evening she developed heartburn sensation around 8 PM. Discomfort persisted throughout the evening and patient went to bed but was unable to sleep. She then noted some radiation of
epigastric/chest pain radiating up towards throat and had a strange sensation in her left arm prompting her to come to emergency department. Initial blood pressure found to be elevated at 196/84. EKG demonstrated sinus bradycardia without ischemic
changes. Initial troponin was negative however repeat troponin 0.055. Chest x-ray showed no acute cardiopulmonary abnormality. Patient was provided sublingual nitroglycerin, aspirin with improvement of symptoms. Given elevated troponin she was
started on IV heparin drip and currently is chest pain/heartburn free.
Progress Note - Tugboat Engineer
Subjective
Date of Service: May 04, 2025
Patient was seen and examined feeling well with no complaints of chest pain/pressure, shortness of breath or dizziness. No palpitations.
Objective
Labs:
05/03/25 02:17
05/04/25 03:28
Labs
Hgb 12.1 g/dL (12.0-16.0) 05/03/25 02:17
Hct 36.2 % (37.0-47.0) L 12/08/25 02:17
Plt Count 314 10^3/uL (130-400) 05/03/25 02:17
APTT Cancelled 05/03/25 19:35
Sodium 138 mmol/L (135-145) 05/04/25 03:28
Potassium 4.2 mmol/L (3.5-5.1) 05/04/25 03:28
BUN 22 mg/dl (7-17) H 05/04/25 03:28
Creatinine 1.0 mg/dL (0.6-1.0) 05/04/25 03:28
Glucose 93 mg/dl (70-99) 05/04/25 03:28
Troponins
05/03/25 05/03/25 05/03/25
02:17 04:38 10:23
Troponin I < 0.012 0.055 H* D 0.094 H* D
05/03/25
17:02
Troponin I 0.066 H* D
Vital Signs and I&O:
Vital Signs
Temp Pulse Resp BP Pulse Ox
97.9 F 60 18 94/52 99
05/04/25 11:06 05/04/25 11:07 05/04/25 11:06 05/04/25 11:07 05/04/25 11:06
Vital Signs
Temp Pulse Resp BP Pulse Ox
97.9 F 60 18 94/52 99
05/04/25 11:06 05/04/25 11:07 05/04/25 11:06 05/04/25 11:07 05/04/25 11:06
Intake & Output
05/02/25 05/03/25 05/04/25 05/05/25
06:59 06:59 06:59 06:59
Intake Total 1240 / 1240 240 / 240
Output Total 1575 / 1575 100 / 100
Balance -335 / -335 140 / 140
Physical Exam
Physical Exam
General: No acute distress, AAOX3
Neck: Negative JVD
Heart: Regular, positive S1/S2, No murmur
Lungs: CTA b/l, negative wheezes/rales/rhonchi
Abd: Positive BS, NT/ND, neg rebound/rigidity/guarding
Ext: No edema. Right radial site intact
Neuro: nonfocal
[2025-05-04 13:17] VITALS: BP 114/52
--- NOTE | 2025-05-04 13:50 | PTCARENOTE ---
Discussed discharge instructions with patient and spouse who verbalized understanding. Discussed activity restrictions regarding cath site. Telemetry pack and INT removed. Patient discharged to home with instructions and personal belongings.
--- NOTE | 2025-05-04 14:24 | W.DCSUMMARY ---
Discharge Summary
Discharge Data
Date of Admission: 05/03/25
Date of Discharge: 05/04/25
-
Pending Results: No
Hospital Course
Discharging Physician : Dr Sandeep Camp
Disposition : To home
Primary care physician : Dr Rene Calderón
Principal Discharge diagnosis :
Chest pain
Gastroesophageal reflux disease
Hypercalcemia
Chronic Discharge diagnosis :
Hyperlipidemia
Essential hypertension
Temporal arteritis
Vertigo
Migraine headache
Chronic back pain
Basal cell carcinoma
Pancreatic cyst
Physical examination:
GEN: aox3
HEENT: moist mucus membrane,
Chest: Clear to auscultation
Heart: N s1/s2, RRR, no murmur
Abd: N BS, soft, nontender, nondistended, no organomegaly
Neuro: No motor or sensory deficits
Ext: No cyanosis, Clubbing, edema
Hospital Course :
Patient is a 84-year-old female with no mention was medical history came to ER with new onset of epigastric and sternal chest discomfort. Symptoms were sudden onset after patient having meal. This was associated with nausea without any vomiting.
Patient had taken some [id number] medication for reflux which helped somewhat initially. Patient came in for recurrence of symptoms later on. In ER EKG showing no new changes. Patient troponin was minimally elevated. Cardiology was
involved in care who took patient to left heart catheterization and did not show any obstructive CAD. Patient was maintained on heparin drip precath which was discontinued. At discharge cardiology recommended for patient to be maintained on
aspirin and Plavix for 3 to 6 months followed by aspirin lifelong. Patient blood pressure medications were also adjusted. Patient had a follow-up echocardiogram which showed preserved ejection fraction without major valvulopathy.
Patient also was noted to having mild hypercalcemia which corrected with IV hydration. Patient was instructed to stop taking further vitamin D at home. Patient follows up with nephrology and will have repeat blood work in office.
Of note patient was also noted to having pancreatic cyst on CT abdomen on previous imaging. Patient is planned to have an MRI in May.
Important imaging findings :
None
Procedure findings :
None
Discharge Plan
-
Patient Disposition: Home (Routine Discharge)
Discharge Diagnosis/Procedures: Chest pain, Hypercalcemia
Condition: Fair
Diet: Low Cholesterol and 2 Gram Sodium
Activity: As tolerated
Driving Restrictions: As prior to admission
Bathing Restrictions: OK to Shower
Referrals:
Lacy Barba PA-C [Specified Professional Personl, Cardiology] - 05/25/25 9:40 am
Referral Note: You have a cardiology follow-up appointment at the [facility] with Dr. Van's physician spa assistant manager, Lacy. Please call with questions
Rene Calderón MD [Family Provider, Internal Medicine] - in one week
Prescriptions:
New
atorvastatin 40 mg Tablet
40 mg PO QPM Qty: 30 0RF
lisinopril 20 mg Tablet
40 mg PO DAILY Qty: 60 2RF
clopidogrel 75 mg Tablet
75 mg PO DAILY Qty: 30 2RF
carvedilol 3.125 mg Tablet
3.125 mg PO BID Qty: 60 2RF
Continued
nifedipine 30 MG tablet extended release 24hr
30 mg PO BID
cholecalciferol (vitamin D3) [Vitamin D3] 1,000 UNIT capsule
1,000 unit PO DAILY
prednisone 1 mg Tablet
1 mg PO DAILY
psyllium Packet
1 packet PO DAILY
aspirin 81 mg Tablet,Delayed Release (Dr/Ec)
81 mg PO DAILY
diphenhydramine HCl [ZzzQuil] 25 mg Capsule
25 mg PO HS
hydroxychloroquine [Plaquenil] 200 mg Tablet
200 mg PO DAILY
esomeprazole magnesium [Nexium] 20 mg Capsule,Delayed Release(Dr/Ec)
20 mg PO DAILY
Discontinued
propranolol 20 MG tablet
20 mg PO BID
lisinopril 40 MG tablet
20 mg PO DAILY
Discharge Orders:
Discharge Patient (As Directed); Ordered 05/04/25
Ordered By: Sandeep Camp
Care Plan Goals
Care Plan Goals:
Problem: Readiness for enhanced knowledge related to diagnosis and treatment plan
Goal: Understand your diagnosis and treatment plan needs, including medications if applicable.
Instructions: Know your diagnosis, underlying causes and treatment plan options, including medications if applicable. Consult with your health care team to learn about your diagnosis and treatment plan, including medications if applicable.
Discharge Date and Time
Discharge Date/Time: 05/04/25 13:55
Print Language: MOROCCAN
== END 2025-05-04 13:55 | disposition home or self-care (01) ==
LOC: IVU 06:41
PROVIDERS: Nurse Practitioner; Physician Assistant; Student in an Organized Health Care Education/Training Program; ADMITTING PHYSICIAN Internal Medicine; ATTENDING PHYSICIAN Hospitalist; EMERGENCY PHYSICIAN Emergency Medicine; FAMILY PHYSICIAN Internal Medicine; OTHER PHYSICIAN Internal Medicine Cardiovascular Disease
DX: K21.9 Gastro-esophageal reflux disease without esophagitis (principal); I16.0 Hypertensive urgency; E83.52 Hypercalcemia; E78.00 Pure hypercholesterolemia, unspecified; I12.9 Hypertensive chronic kidney disease with stage 1 through stage 4 chronic kidney disease, or unspecified chronic kidney disease; N18.9 Chronic kidney disease, unspecified; M31.6 Other giant cell arteritis; G43.909 Migraine, unspecified, not intractable, without status migrainosus; G89.29 Other chronic pain; Z85.828 Personal history of other malignant neoplasm of skin; K86.2 Cyst of pancreas; Z96.641 Presence of right artificial hip joint; Z82.49 Family history of ischemic heart disease and other diseases of the circulatory system; Z80.0 Family history of malignant neoplasm of digestive organs; I25.10 Atherosclerotic heart disease of native coronary artery without angina pectoris; Z88.5 Allergy status to narcotic agent; I08.3 Combined rheumatic disorders of mitral, aortic and tricuspid valves; Z88.1 Allergy status to other antibiotic agents; Z79.82 Long term (current) use of aspirin; Z79.899 Other long term (current) drug therapy; Z79.52 Long term (current) use of systemic steroids; Z82.3 Family history of stroke; Z83.3 Family history of diabetes mellitus; I37.1 Nonrheumatic pulmonary valve insufficiency; R07.89 Other chest pain
CPT/HCPCS: 71046; 80048; 80053; 80061; 83036; 83690; 84484; 85025; 85730; 93005; 93306; 93458; 96374; 96375; 99152; 99285; C1769; G0378; Q9967